=== PATIENT | male | born 1950 | race Caucasian/White ===

== ENCOUNTER → 2016-12-01 | Outpatient (CLI) | payer OTHER ==
[~2016-12-01] MED LIST: ATOR-22 PO; CEPH500C2 PO; CHOL100010 PO; GLC/500 PO; LISI-725 PO
== END | disposition home or self-care (01) ==
LOC: C.CPL 15:56
DX: S83.242D Other tear of medial meniscus, current injury, left knee, subsequent encounter (principal); X58.XXXA Exposure to other specified factors, initial encounter

== ENCOUNTER 2018-11-26 03:35 | Observation (INO) ==
[2018-11-26] MEDS ORDERED: fentaNYL citrate 100 MCG/2 ML VIAL IV STA (04:21)
[2018-11-26 04:42] LABS: Basophils # (auto) 0.07 K/uL (0-0.2); Basophils % (auto) 0.7 %; Eosinophils # (auto) 0.23 K/uL (0-0.5); Eosinophils % (auto) 2.3 %; Hemoglobin 16.1 g/dL (14.0-18.0); Immature Granulocytes # (auto) 0.02 K/uL (0.00-0.02); Immature Granulocytes % (auto) 0.2 %; Lymphocytes # (auto) 3.56 K/uL (1.2-3.4); Lymphocytes % (auto) 35.5 %; Mean Corpuscular Hgb Conc 34.3 g/dL (32-36); Mean Platelet Volume 10.2 fL (7.4-10.4); Monocytes # (auto) 0.77 K/uL (0.11-0.59); Monocytes % (auto) 7.7 %; Neutrophils # (auto) 5.39 K/uL (1.4-6.5); Neutrophils % (auto) 53.6 %; Platelet Count 304 K/uL (130-400); RDW Coefficient of Variation 12.7 % (11.5-14.5); RDW Standard Deviation 43.5 fL (36.4-46.3); White Blood Count 10.04 K/uL (4.8-10.8)
[2018-11-26 04:49] LABS: Alanine Aminotransferase 32 U/L (12-78); Albumin Level 3.9 gm/dl (3.4-5.0); Aspartate Aminotransferase 15 U/L (15-37); BUN Creatinine Ratio 30.6 (10-20); Blood Urea Nitrogen 28 mg/dl (7-18); Calcium 9.1 mg/dl (8.5-10.1); Carbon Dioxide 32 mmol/L (21-32); Chloride 105 mmol/L (98-107); Creatinine Clr Calc Pharmacy 81.8 ml/min; Est GFR (African American) 98.7; Est GFR (Non-African American) 85.2; Glucose 113 mg/dl (70-99); Magnesium 2.3 mg/dl (1.8-2.4); Potassium 4.3 mmol/L (3.5-5.1); Sodium 139 mmol/L (136-145)
[2018-11-26] MEDS ORDERED: SODIUM CHLORIDE 0.9% 1000ML 1,000 ML IV ONE (04:51)
[2018-11-26 04:54] LABS: Albumin Globulin Ratio 1.1 (0.9-2); Alkaline Phosphatase 67 U/L (45-117); Bilirubin,Total 0.4 mg/dl (0.2-1); Globulin 3.5 gm/dl (2.5-4.0); Total Protein 7.4 gm/dl (6.4-8.2); Troponin I < 0.015 ng/ml (0-0.045)
[2018-11-26] MEDS ORDERED: ONDANSETRON INJ 2 MG/ML 2 ML VIAL IV STA (05:15)
[2018-11-26] MEDS ORDERED: MoRPHine SULFATE 4 MG/ML 1 ML CARP\\VIAL IV STA (05:15)
[2018-11-26] MEDS ORDERED: HYDROmorphone INJ 0.5 MG/0.5 ML SYR IV STA (06:06)
--- NOTE | 2018-11-26 06:43 | Ultrasound Report ---
US gallbladder HISTORY: 68 years-old Male ruq pain acute right upper quadrant abdominal pain COMPARISON: CT abdomen pelvis 01/31/2010 TECHNIQUE: Multiple real-time sonographic images of the abdominal right upper quadrant were obtained assessing grayscale appearance and color flow FINDINGS: Study is limited by obscuring bowel gas. The pancreas is not diagnostically visualized. There are sev eral apparent hepatic cysts noted measuring up to approximately 1.2 cm. Gallbladder is mildly distend ed and sludge-filled. Trace pericholecystic fluid. Gallbladder wall is thickened measuring up to appr oximately 4 mm about the gallbladder fundus. Mild ringdown artifact noted about the gallbladder fundu s. Otherwise the gallbladder measures approximately 2 mm in thickness. No shadowing cholelithiasis. S onographic Garcia sign was reported as negative. There is a least mild intrahepatic biliary ductal dilation. The common bile duct measures up to 9 mm. Imaged right kidney is unremarkable without hydronephrosis. IMPRESSION: 1. Sludge-filled gallbladder is mildly distended. Additionally, there is trace pericholecystic fluid and mild fundal wall thickening without shadowing cholelithiasis. Correlate clinically to exclude acu te cholecystitis. A nuclear medicine hepatobiliary scan may also be considered. 2. Suggestion of fundal adenomyomatosis. 3. Mild intrahepatic and extrahepatic biliary ductal dilation. Correlate with laboratory analysis to exclude obstructive etiology. The above report was generated using voice recognition software. It may contain grammatical, syntax o r spelling errors. Electronically signed by: Ramon Sevilla M.D. 11/26/2018 6:42 AM
--- NOTE | 2018-11-26 07:13 | Emergency Department Note ---
Entered by Nay Spears acting as a scribe for History of Present Illness General Chief complaint: Flank Pain Stated complaint: PAIN IN LWR RIGHT SIDE Time Seen by Provider: 11/26/18 03:42 Source: patient History of Present Illness Onset (ago): hour(s) 3 Location: abdomen Radiation: non-radiation Severity: similar to prior episodes (indigestion, kidney stone) Pain Consistency: + other (worsening) Maximum Pain Intensity: 9 Quality: + other (bloated) Associated symptoms: + denies other symptoms (hematochezia, melena, urinary symptoms) and + other (loose bowel movements); no fever/chills, no nausea/vomiting (nausea) and no shortness of breath The patient is a 68 year old male who presents to the Emergency Room with complaints of an episode of right flank pain starting 3 hours ago. The patient states that last night after dinner he felt gassy and bloated. He reports that assumed it was just indigestion as his abdominal pain was all over his abdomen and his stomach was gurgly. He states that he went to bed and woke up once noticing that the pain was still there. He reports that he was able to fall back asleep, but woke up again 3 hours ago and was unable to go back to sleep. He states that this time the pain was right under his right ribs. He reports that it is worse than it was. He notes that he has had a kidney stone in the past and it feels similar to that. The patient notes that he has had loose bowel movements since being in [facility] in the beginning of october. He notes that he took a Z-Pack and some herbal remedy they offered with no relief. The patient denies radiation to his back, nausea, fever, chills, trouble breathing, hematochezia, melena, urinary symptoms, change in activity, recent illness, and change in medications. The patient notes that he is unsure if he has had an ap pendectomy or cholecystectomy. Home Medications Home Medications Medication Instructions Recorded Confirmed Type atorvastatin 20 mg PO DAILY 11/26/18 11/26/18 History cholecalciferol (vitamin D3) 1,000 unit PO DAILY 11/26/18 11/26/18 History [Vitamin D3] lisinopril 20 mg PO DAILY 11/26/18 11/26/18 History metformin 500 mg PO BID 11/26/18 11/26/18 History oxycodone 5 mg PO Q4H PRN #18 tab 11/27/18 Rx Allergies Allergy/AdvReac Type Severity Reaction Status Date / Time No Known Drug Allergies Allergy Unknown NKDA Verified 11/26/18 13:04 Past Med/Surg History Medical History Septic olecranon bursitis of right elbow (Acute 09/04/14) HTN (hypertension) Hx of basal cell carcinoma Kidney stones Surgical History H/O repair of right rotator cuff H/O wisdom tooth extraction S/P right knee arthroscopy Family History Other Cancer Gallbladder disease Heart disease Hypertension Social History Preferred Language: Spanish Communication Ability: Effective Facsimile Operator Required: No Beliefs That Will Affect Care: None marital status: Current Living Situation: Spouse current occupational status: retired Other Information That Helps Us Care for You: No Feels Safe at Home: Yes Safety Concerns: Feels Safe At This Time Smoking Status: Never smoker Do You Dip or Chew Tobacco: No Second Hand Exposure: No Tobacco Cessation Education Requested by Patient: No Hx Alcohol Use: Yes Alcohol type: beer, wine and hard liquor Hx Substance Use: No Review of Systems See HPI for pertinent positives & negatives. and A total of 10 systems reviewed and were otherwise negative Physical Exam Vital Signs Vital Signs - 24 hr 11/26/18 23:40 11/27/18 02:29 11/27/18 07:13 Temperature 37.3 C 36.8 C 36.7 C Temperature Source Oral Oral Oral Pulse Rate [Apical] Pulse Rate [Left Finger] Pulse Rate [Right Finger] 83 66 67 Respiratory Rate 14 14 16 Blood Pressure [Left Arm] 138/71 136/72 Blood Pressure [Right Arm] 143/75 H Blood Pressure Mean [Left Arm] 93 93 Blood Pressure Mean [Right Arm] 97 Blood Pressure Position [Left Arm] Lying Lying Blood Pressure Position [Right Arm] Lying Pulse Oximetry 93 95 92 Oxygen Delivery Method Room Air Room Air 11/27/18 12:40 11/27/18 14:02 Temperature 36.7 C 36.7 C Temperature Source Oral Pulse Rate [Apical] 92 H Pulse Rate [Left Finger] 86 Pulse Rate [Right Finger] 72 72 Respiratory Rate 18 18 Blood Pressure [Left Arm] 136/72 Blood Pressure [Right Arm] 141/72 H 141/72 H Blood Pressure Mean [Left Arm] Blood Pressure Mean [Right Arm] 95 Blood Pressure Position [Left Arm] Blood Pressure Position [Right Arm] Lying Pulse Oximetry 93 93 Oxygen Delivery Method GENERAL: alert, uncomfortable appearing, well nourished, no distress, non-toxic EYE EXAM: normal conjunctiva, PERRL and EOM's grossly intact OROPHARYNX: no exudate, no erythema, lips, buccal mucosa, and tongue normal and mucous membranes are moist NECK: supple, no nuchal rigidity, no adenopathy, non-tender LUNGS: Clear to auscultation. Normal chest wall mechanics HEART: no murmurs, S1 normal and S2 normal ABDOMEN: abdomen soft, mild right upper quadrant tenderness to palpation, normo- active bowel sounds, no masses, no rebound or guarding. BACK: Back is symmetrical on inspection and there is no deformity, no midline tenderness, no CVA tenderness. SKIN: no rashes and no bruising UPPER EXTREMITIES: upper extremities are grossly normal. FROM, nml pulses b/l. LOWER EXTREMITIES: No pitting edema. FROM, nml pulses b/l. NEURO EXAM: Normal sensorium, cranial nerves II-XII grossly intact, normal speech, no gross weakness of arms, no gross weakness of legs. Course 0349: The patient was evaluated in room B9. A complete history and physical exam was performed. 0607: I reevaluated the patient and updated him at this time on his test results. I discussed the treatment plan with him. He verbally agrees and understands. 0645: I discussed the patient's case with Dr. Ornelas- General Surgeon. He will pass along to day crew. Consultations Consultation #1: I discussed the patient's case with Dr. Ornelas- General Surgeon. He will evaluate him for further management. Time: 06:45 Administered Medications Discontinued Medications Bupivacaine HCl (Sensorcaine 0.25% Inj) Confirm Administered Dose 30 ml .ROUTE .Kashless-MED ONE Stop: 11/26/18 13:52 Last Admin: 11/26/18 17:04 Dose: 25 ml Documented by: [id number] Epinephrine HCl (Epinephrine) Confirm Administered Dose 1 mg .ROUTE .STK-MED ONE Stop: 11/26/18 13:52 Last Admin: 11/26/18 17:07 Dose: 1 mg Documented by: [id number] Erythromycin (Erythromycin) 1 appln OPL Q4H [place] Stop: 12/07/18 21:59 Last Admin: 11/27/18 02:33 Dose: 1 appln Documented by: [id number] Admin: 11/26/18 22:35 Dose: 1 appln Documented by: [id number] Fentanyl Citrate (Fentanyl Citrate) 50 mcg IV NOW STA Stop: 11/26/18 04:22 Last Admin: 11/26/18 04:30 Dose: 50 mcg Documented by: [id number] Fentanyl Citrate (Fentanyl Citrate) 50 mcg IV Q5M PRN PRN Reason: PACU Use Only-Pain Stop: 11/26/18 18:18 Last Admin: 11/26/18 17:44 Dose: 50 mcg Documented by: [id number] Glucagon (Glucagen) Confirm Administered Dose 1 mg .ROUTE .STK-MED ONE Stop: 11/26/18 15:41 Last Admin: 11/26/18 16:43 Dose: Not Given Documented by: [id number] Hydromorphone HCl (Dilaudid) 0.5 mg IV NOW STA Stop: 11/26/18 06:07 Last Admin: 11/26/18 06:13 Dose: 0.5 mg Documented by: [id number] Hydromorphone HCl (Dilaudid) 0.5 mg IV Q15M PRN PRN Reason: Pain Stop: 12/10/18 07:17 Last Admin: 11/26/18 07:24 Dose: 0.5 mg Documented by: [id number] Hydromorphone HCl (Dilaudid) 1 mg IV Q3H PRN PRN Reason: SEVERE Pain (Scale 7,8,9,10) Stop: 12/10/18 09:42 Last Admin: 11/26/18 10:27 Dose: 1 mg Documented by: [id number] Hydromorphone HCl (Dilaudid) 0.5 mg IV Q3H PRN PRN Reason: Breakthrough Pain Stop: 12/10/18 18:41 Last Admin: 11/27/18 07:26 Dose: 0.5 mg Documented by: [id number] Admin: 11/26/18 22:18 Dose: 0.5 mg Documented by: [id number] Sodium Chloride (Nss 1000ml) 1,000 mls @ 999 mls/hr IV .Q1H1M ONE Stop: 11/26/18 05:51 Last Infusion: 11/26/18 05:38 Dose: 0 mls/hr Documented by: [id number] Admin: 11/26/18 04:56 Dose: 999 mls/hr Documented by: [id number] Sodium Chloride (Nss 1000ml) 1,000 mls @ 125 mls/hr IV .Q8H [place] Stop: 12/26/18 07:29 Last Infusion: 11/26/18 14:45 Dose: 0 mls/hr Documented by: [id number] Admin: 11/26/18 07:24 Dose: 125 mls/hr Documented by: [id number] Cefazolin Sodium (Ancef 2000mg) 2,000 mg in 15 mls @ 3.75 mls/min IV PREOP [place] Stop: 11/26/18 18:00 Last Admin: 11/26/18 13:55 Dose: 3.75 mls/min Documented by: [id number] Sodium Chloride (Nss 1000ml) 1,000 mls @ 75 mls/hr IV .[id number] [place] Stop: 12/26/18 09:42 Last Admin: 11/27/18 08:28 Dose: 125 mls/hr Documented by: [id number] Infusion: 11/27/18 08:28 Dose: 125 mls/hr Documented by: [id number] Infusion: 11/27/18 01:30 Dose: 125 mls/hr Documented by: [id number] Infusion: 11/27/18 00:27 Dose: 0 mls/hr Documented by: [id number] Admin: 11/26/18 23:46 Dose: Not Given Documented by: [id number] Admin: 11/26/18 23:33 Dose: 125 mls/hr Documented by: [id number] Infusion: 11/26/18 19:16 Dose: 125 mls/hr Documented by: [id number] Admin: 11/26/18 11:16 Dose: 125 mls/hr Documented by: [id number] Insulin Aspart (Novolog Flexpen) 0 units SC ACHS [place] Stop: 12/26/18 20:59 Last Admin: 11/27/18 12:28 Dose: Not Given Documented by: [id number] Cosigned by: [id number] Admin: 11/27/18 09:01 Dose: Not Given Documented by: [id number] Cosigned by: [id number] Admin: 11/26/18 21:17 Dose: Not Given Documented by: [id number] Cosigned by: [id number] Iothalamate Meglumine (Conray 60%) Confirm Administered Dose 50 ml .ROUTE .STK- MED ONE Stop: 11/26/18 13:50 Last Admin: 11/26/18 16:53 Dose: 16 ml Documented by: [id number] Lidocaine HCl (Xylocaine Jely 2%) 0 ml EXT NOW ONE Stop: 11/26/18 19:13 Last Admin: 11/26/18 19:48 Dose: 5 ml Documented by: [id number] Meperidine HCl (Demerol) Confirm Administered Dose 25 mg .ROUTE .STK-MED ONE Stop: 11/26/18 17:38 Last Admin: 11/26/18 17:39 Dose: 12.5 mg Documented by: [id number] Morphine Sulfate (Morphine Sulfate) 4 mg IV NOW STA Stop: 11/26/18 05:16 Last Admin: 11/26/18 05:20 Dose: 4 mg Documented by: [id number] Ondansetron HCl (Zofran) 4 mg IV NOW STA Stop: 11/26/18 05:16 Last Admin: 11/26/18 05:20 Dose: 4 mg Documented by: [id number] Oxycodone HCl (Roxicodone Immediate Rel) 10 mg PO Q4H PRN PRN Reason: pain severe Stop: 12/10/18 18:41 Last Admin: 11/27/18 02:32 Dose: 10 mg Documented by: [id number] Medical Decision Making Differential Diagnosis Differential diagnosis: Etiologies such as biliary colic, cholecystitis, hepatitis, pancreatitis, cardiac disease, pancreatitis, gastritis, peptic ulcer disease, appendicitis, cystitis, diverticulitis, mesenteric ischemia, inflammatory bowel disease, ileus, bowel obstruction, testicular torsion, aortic pathology, shingles, as well as others were considered. Medical Records Attestation: I reviewed the patient's medical records. Home Medications Current Medication List: was personally reviewed by me Laboratory Data Attestation: I reviewed the patient's lab results. Result diagrams: 11/27/18 07:33 11/27/18 07:33 Lab Results 11/26/18 11/26/18 11/26/18 Range/Units 03:46 03:46 03:46 WBC 10.04 (4.8-10.8) K/uL RBC 5.00 (4.7-6.1) M/uL Hgb 16.1 (14.0-18.0) g/dL Hct 47.0 (42-52) % MCV 94.0 (80-100) fL MCH 32.2 (25-34) pg MCHC 34.3 (32-36) g/dL RDW Std Deviation 43.5 (36.4-46.3) fL RDW Coeff of Chet 12.7 (11.5-14.5) % Plt Count 304 (130-400) K/uL MPV 10.2 (7.4-10.4) fL Immature Gran % (Auto) 0.2 % Neut % (Auto) 53.6 % Lymph % (Auto) 35.5 % [place] % (Auto) 7.7 % Eos % (Auto) 2.3 % Baso % (Auto) 0.7 % Immature Gran # (Auto) 0.02 (0.00-0.02) K/uL Neut # (Auto) 5.39 (1.4-6.5) K/uL Lymph # (Auto) 3.56 H (1.2-3.4) K/uL [place] # (Auto) 0.77 H (0.11-0.59) K/uL Eos # (Auto) 0.23 (0-0.5) K/uL Baso # (Auto) 0.07 (0-0.2) K/uL Sodium 139 (136-145) mmol/L Potassium 4.3 (3.5-5.1) mmol/L Chloride 105 (98-107) mmol/L Carbon Dioxide 32 (21-32) mmol/L Anion Gap 2.0 L (3-11) BUN 28 H (7-18) mg/dl Creatinine 0.92 (0.6-1.4) mg/dl Est Cr Clr Drug Dosing 81.8 ml/min Est GFR ( Amer) 98.7 Est GFR (Non-Af Amer) 85.2 BUN/Creatinine Ratio 30.6 H (10-20) Glucose 113 H (70-99) mg/dl POC Glucose (70-99) Calcium 9.1 (8.5-10.1) mg/dl Magnesium 2.3 (1.8-2.4) mg/dl Total Bilirubin 0.4 (0.2-1) mg/dl Direct Bilirubin (0-0.2) mg/dl AST 15 (15-37) U/L ALT 32 (12-78) U/L Alkaline Phosphatase 67 (45-117) U/L Troponin I < 0.015 (0-0.045) ng/ml Total Protein 7.4 (6.4-8.2) gm/dl Albumin 3.9 (3.4-5.0) gm/dl Globulin 3.5 (2.5-4.0) gm/dl Albumin/Globulin Ratio 1.1 (0.9-2) Lipase 211 (73-393) U/L Urine Color Urine Appearance (Clear) Urine pH (4.5-7.5) Ur Specific [place] (1.000-1.030) Urine Protein (Negative) Urine Glucose (UA) (Negative) Urine Ketones (Negative) Urine Blood (Negative) Urine Nitrite (Negative) Urine Bilirubin (Negative) Urine Urobilinogen (Negative) Ur Leukocyte Esterase (Negative) Hepatitis C Ab Screen Neg (Neg) 11/26/18 11/26/18 11/27/18 Range/Units 12:40 20:55 07:33 WBC 12.42 H (4.8-10.8) K/uL RBC 4.14 L (4.7-6.1) M/uL Hgb 13.1 L D (14.0-18.0) g/dL Hct 38.5 L (42-52) % MCV 93.0 (80-100) fL MCH 31.6 (25-34) pg MCHC 34.0 (32-36) g/dL RDW Std Deviation 44.5 (36.4-46.3) fL RDW Coeff of Chet 12.9 (11.5-14.5) % Plt Count 233 (130-400) K/uL MPV 9.5 (7.4-10.4) fL Immature Gran % (Auto) 0.3 % Neut % (Auto) 73.9 % Lymph % (Auto) 17.8 % [place] % (Auto) 7.6 % Eos % (Auto) 0.2 % Baso % (Auto) 0.2 % Immature Gran # (Auto) 0.04 H (0.00-0.02) K/uL Neut # (Auto) 9.19 H (1.4-6.5) K/uL Lymph # (Auto) 2.21 (1.2-3.4) K/uL [place] # (Auto) 0.94 H (0.11-0.59) K/uL Eos # (Auto) 0.02 (0-0.5) K/uL Baso # (Auto) 0.02 (0-0.2) K/uL Sodium (136-145) mmol/L Potassium (3.5-5.1) mmol/L Chloride (98-107) mmol/L Carbon Dioxide (21-32) mmol/L Anion Gap (3-11) BUN (7-18) mg/dl Creatinine (0.6-1.4) mg/dl Est Cr Clr Drug Dosing ml/min Est GFR ( Amer) Est GFR (Non-Af Amer) BUN/Creatinine Ratio (10-20) Glucose (70-99) mg/dl POC Glucose 148 H (70-99) Calcium (8.5-10.1) mg/dl Magnesium (1.8-2.4) mg/dl Total Bilirubin (0.2-1) mg/dl Direct Bilirubin (0-0.2) mg/dl AST (15-37) U/L ALT (12-78) U/L Alkaline Phosphatase (45-117) U/L Troponin I (0-0.045) ng/ml Total Protein (6.4-8.2) gm/dl Albumin (3.4-5.0) gm/dl Globulin (2.5-4.0) gm/dl Albumin/Globulin Ratio (0.9-2) Lipase (73-393) U/L Urine Color Yellow Urine Appearance Clear (Clear) Urine pH 5.0 (4.5-7.5) Ur Specific [place] 1.021 (1.000-1.030) Urine Protein Negative (Negative) Urine Glucose (UA) Negative (Negative) Urine Ketones Negative (Negative) Urine Blood Negative (Negative) Urine Nitrite Negative (Negative) Urine Bilirubin Negative (Negative) Urine Urobilinogen Negative (Negative) Ur Leukocyte Esterase Negative (Negative) Hepatitis C Ab Screen (Neg) 11/27/18 11/27/18 11/27/18 Range/Units 07:33 07:58 12:13 WBC (4.8-10.8) K/uL RBC (4.7-6.1) M/uL Hgb (14.0-18.0) g/dL Hct (42-52) % MCV (80-100) fL MCH (25-34) pg MCHC (32-36) g/dL RDW Std Deviation (36.4-46.3) fL RDW Coeff of Chet (11.5-14.5) % Plt Count (130-400) K/uL MPV (7.4-10.4) fL Immature Gran % (Auto) % Neut % (Auto) % Lymph % (Auto) % [place] % (Auto) % Eos % (Auto) % Baso % (Auto) % Immature Gran # (Auto) (0.00-0.02) K/uL Neut # (Auto) (1.4-6.5) K/uL Lymph # (Auto) (1.2-3.4) K/uL [place] # (Auto) (0.11-0.59) K/uL Eos # (Auto) (0-0.5) K/uL Baso # (Auto) (0-0.2) K/uL Sodium 140 (136-145) mmol/L Potassium 3.8 (3.5-5.1) mmol/L Chloride 107 (98-107) mmol/L Carbon Dioxide 28 (21-32) mmol/L Anion Gap 5.0 (3-11) BUN 12 D (7-18) mg/dl Creatinine 0.67 (0.6-1.4) mg/dl Est Cr Clr Drug Dosing 112.4 ml/min Est GFR ( Amer) 114.4 Est GFR (Non-Af Amer) 98.7 BUN/Creatinine Ratio 18.1 (10-20) Glucose 104 H (70-99) mg/dl POC Glucose 101 H 98 (70-99) Calcium 8.3 L (8.5-10.1) mg/dl Magnesium (1.8-2.4) mg/dl Total Bilirubin 1.0 D (0.2-1) mg/dl Direct Bilirubin 0.2 (0-0.2) mg/dl AST 61 H (15-37) U/L ALT 89 H (12-78) U/L Alkaline Phosphatase 54 (45-117) U/L Troponin I (0-0.045) ng/ml Total Protein 5.9 L D (6.4-8.2) gm/dl Albumin 3.1 L (3.4-5.0) gm/dl Globulin (2.5-4.0) gm/dl Albumin/Globulin Ratio (0.9-2) Lipase (73-393) U/L Urine Color Urine Appearance (Clear) Urine pH (4.5-7.5) Ur Specific [place] (1.000-1.030) Urine Protein (Negative) Urine Glucose (UA) (Negative) Urine Ketones (Negative) Urine Blood (Negative) Urine Nitrite (Negative) Urine Bilirubin (Negative) Urine Urobilinogen (Negative) Ur Leukocyte Esterase (Negative) Hepatitis C Ab Screen (Neg) Imaging Data Radiologist's Impression: Radiology results as stated below per my review and the radiologist's interpretation: US RUQ: Gallbladder filled with sludge/cholesterol crystals; gallbladder wall thickening superimposed along with pericholecystic fluid. Negative sonographic Garcia's sign reported. Consider correlation with nuclear medicine HIDA scan if clinically indicated. Intra-and extrahepatic biliary ductal dilatation identified with the CBD measuring up to 9.4 mm. Hepatic cysts noted measuring up to 12 mm. Portal triads are preserved. Pancreas obscured by overlying bowel gas. Visualized right kidney unremarkable. Comparison CT abdomen and pelvis dated 01/31/2010. Radiologist: Antonino Webb MD Study ready at 05:20 and initial results transmitted at 05:34. ECG Data Attestation: I personally reviewed and interpreted this ECG as follows: Indication: abdominal pain Rate (beats per minute): 71 Rhythm: sinus rhythm Findings: + other (normal axis; normal intervals; flat T waves in aVF, V5, V6) and + T-wave inversion (lead 3); no PAC, no PVC and no ectopy Blood Pressure Blood Pressure Findings: Elevated blood pressure Blood Pressure Disposition: elevated BP felt to be situational MDM Narrative Pt here with focal RUQ tenderness and abn US concerning for evolving cholecystitis. Labs reassuring, no leukocytosis or elevated LFT's/lipase. US notes ductal dilatation intra and extra hepatic but no evidence of choledocholithiasis and LFT's not suggestive of obstruction. No evidence of pancreatitis. Given need for multiple doses of narcotics for pain, I feel this is likely the early evolution of his cholecystitis. No fever. No vomiting. VS stable throughout. I do not suspect ascending cholangitis, no evidence of bacteremia/sepsis. I do not suspect additional gi bleed, colitis, mesenteric ischemia, perf, sbo. Pt here aware of all results and in agreement with plan for discussion and consultation with general surgery. Impression & Plan Right upper quadrant abdominal pain, Cholecystitis Discharge Plan Visit Data *Final* Discharge Date/Time: 11/26/18 09:22 Chief Complaint: Flank Pain Stated Complaint: PAIN IN LWR RIGHT SIDE ED Provider: Amy Mulligan Discharge Problem: Right upper quadrant abdominal pain, Cholecystitis Patient Disposition: Admitted As Inpatient Condition: Good Discharge Instructions Interventions: ED Discharge Assessment Last Done: 11/26/18 09:22 The scribe's documentation has been prepared under my direction and personally reviewed by me in its entirety. I confirm that the note above accurately reflects all work, treatment, procedures, and medical decision making performed by me.
[2018-11-26] MEDS ORDERED: HYDROmorphone INJ 0.5 MG/0.5 ML SYR IV PRN ×3 (07:18→09:43)
[2018-11-26] MEDS ORDERED: SODIUM CHLORIDE 0.9% 1000ML 1,000 ML IV SCH (07:30)
--- NOTE | 2018-11-26 08:50 | History & Physical Report ---
Date of Service November 26, 2018 Assessment & Plan (1) Right upper quadrant abdominal pain: 68 year-old male who presented to emergency department early this morning with complaint of abdominal bloating, distention, and pain that started last evening. Had Easter meal yesterday afternoon and then developed bloating and distention with right upper quadrant pain in the evening. Pain off and on. Associated nausea this morning, no vomiting. Ultrasound showing distended gallbladder with sludge, no stones, wall thickening at 4 mm at the fundus with possible adenomyomatosis and dilated CBD at 9 mm. CBC, CMP, lipase all within normal limits. Examination: mildly distended abdomen, soft, mildly tender in the RUQ however negative Garcia's, no guarding or rebound. Plan: Given imaging findings and presenting symptoms, believe patient is having symptomatic biliary colic due to gallbladder sludge. Possible adenomyomatosis of the gallbladder fundus. Believe cholecystectomy is indicated. Discussed laparoscopic approach with patient and the possibility of conversion to open procedure although rare. Discussed restrictions and recovery time. Plan to admit patient to med/surg floor in the interim until operating room available Continue NPO, may have mouth swabs, IV NSS at 125 mls/hr, IV Zofran prn nausea, IV Dilaudid prn pain, SCDs for DVT prophylaxis, ambulate in hallways. Discussed patient with Dr. Ricketts who agrees with above and is to evaluate patient later this morning (2) Biliary sludge: (3) Biliary colic symptom: History of Present Illness Chief Complaint: abdominal bloating, RUQ abdominal pain Primary Care Provider: Jose Carlos Carias MD Felipe is a pleasant 68 year-old male who presented to emergency department thi s morning with complaint of abdominal bloating/distention and then pain that began last evening. Ate Easter dinner yesterday afternoon and felt fine. Was able to drive home and watch TV last night without any discomfort. Around 11 pm had bloating and generalized discomfort that resolved and then a few hours later pain woke him up and was unable to get back to sleep. Associated nausea. Bowel movements have been loose since traveling back from [place] in October but regularly scheduled every day. No bloody or black/tarry stools. Has had kidney stones in the past in which he originally thought this was what his pain was but then did not have any trouble urinating, dysuria, or blood in urine. Denies of any fever, chills, sweats, chest pain, shortness of breath, difficulty breathing, or vomiting. No history of gallbladder troubles. ER work-up included labs which showed no leukocytosis. CMP including t. bili and lfts with lipase all wnl. Abdominal ultrasound showing sludge with trace pericholecystic fluid and mild thickening of the gallbladder fundus. CBD dilated at 9 mm. Question of possible adenomyomatosis of the gallbladder fundus. He had Dilaudid around 7:15 am and during examination he was not having any pain or discomfort. Pain on presentation was 8/10. Was very uncomfortable last night. Allergies Allergy/AdvReac Type Severity Reaction Status Date / Time No Known Drug Allergies Allergy Unknown NKDA Verified 11/26/18 13:04 Home Medications Home Medications Medication Instructions Recorded Confirmed Type atorvastatin 20 mg PO DAILY 11/26/18 11/26/18 History cholecalciferol (vitamin D3) 1,000 unit PO DAILY 11/26/18 11/26/18 History [Vitamin D3] lisinopril 20 mg PO DAILY 11/26/18 11/26/18 History metformin 500 mg PO BID 11/26/18 11/26/18 History Past Med/Surg History Medical History Septic olecranon bursitis of right elbow (Acute 09/04/14) HTN (hypertension) Hx of basal cell carcinoma Kidney stones Surgical History H/O repair of right rotator cuff H/O wisdom tooth extraction S/P right knee arthroscopy Family History Other Cancer Gallbladder disease Heart disease Hypertension Social History Preferred Language: Vietnamese Communication Ability: Effective Wind Technician Required: No Beliefs That Will Affect Care: None marital status: Current Living Situation: Spouse current occupational status: retired Other Information That Helps Us Care for You: No Feels Safe at Home: Yes Safety Concerns: Feels Safe At This Time Smoking Status: Never smoker Do You Dip or Chew Tobacco: No Second Hand Exposure: No Tobacco Cessation Education Requested by Patient: No Hx Alcohol Use: Yes Alcohol type: beer, wine and hard liquor Hx Substance Use: No Review of Systems Review of Systems: All systems reviewed & are unremarkable except as noted in HPI & below Physical Exam Constitutional: WD/WN, vitals as above no acute distress and not ill appearing Respiratory: normal respiratory effort, lungs clear to auscultation Cardiovascular: RRR, no murmur, no edema Gastrointestinal (Abdomen): Inspection/Auscultation: abdomen normal to inspection, + abdomen distended (mild) and normal bowel sounds Percussion/Palpation: + abdomen tender (mild in RUQ) and abdomen soft; no guarding and abdomen not rigid negative garcia's sign Skin: no rashes, warm and dry Psychiatric: A+Ox3, euthymic affect Results & Data Vital Signs (Past 12 Hours) Vital Signs Temp Pulse Pulse Resp BP BP Pulse Ox 11/26/18 08:30 72 18 148/81 H 95 11/26/18 07:00 71 17 111/61 96 11/26/18 05:30 70 15 143/85 H 11/26/18 05:16 74 18 11/26/18 05:12 70 16 155/97 H 11/26/18 03:38 36.6 C 80 18 177/107 H 96 Laboratory Results 11/26/18 11/26/18 Range/Units 03:46 03:46 WBC 10.04 (4.8-10.8) K/uL RBC 5.00 (4.7-6.1) M/uL Hgb 16.1 (14.0-18.0) g/dL Hct 47.0 (42-52) % MCV 94.0 (80-100) fL MCH 32.2 (25-34) pg MCHC 34.3 (32-36) g/dL RDW Std Deviation 43.5 (36.4-46.3) fL RDW Coeff of Chet 12.7 (11.5-14.5) % Plt Count 304 (130-400) K/uL MPV 10.2 (7.4-10.4) fL Immature Gran % (Auto) 0.2 % Neut % (Auto) 53.6 % Lymph % (Auto) 35.5 % [place] % (Auto) 7.7 % Eos % (Auto) 2.3 % Baso % (Auto) 0.7 % Immature Gran # (Auto) 0.02 (0.00-0.02) K/uL Neut # (Auto) 5.39 (1.4-6.5) K/uL Lymph # (Auto) 3.56 H (1.2-3.4) K/uL [place] # (Auto) 0.77 H (0.11-0.59) K/uL Eos # (Auto) 0.23 (0-0.5) K/uL Baso # (Auto) 0.07 (0-0.2) K/uL Sodium 139 (136-145) mmol/L Potassium 4.3 (3.5-5.1) mmol/L Chloride 105 (98-107) mmol/L Carbon Dioxide 32 (21-32) mmol/L Anion Gap 2.0 L (3-11) BUN 28 H (7-18) mg/dl Creatinine 0.92 (0.6-1.4) mg/dl Est Cr Clr Drug Dosing 81.8 ml/min Est GFR ( Amer) 98.7 Est GFR (Non-Af Amer) 85.2 BUN/Creatinine Ratio 30.6 H (10-20) Glucose 113 H (70-99) mg/dl Calcium 9.1 (8.5-10.1) mg/dl Magnesium 2.3 (1.8-2.4) mg/dl Total Bilirubin 0.4 (0.2-1) mg/dl AST 15 (15-37) U/L ALT 32 (12-78) U/L Alkaline Phosphatase 67 (45-117) U/L Troponin I < 0.015 (0-0.045) ng/ml Total Protein 7.4 (6.4-8.2) gm/dl Albumin 3.9 (3.4-5.0) gm/dl Globulin 3.5 (2.5-4.0) gm/dl Albumin/Globulin Ratio 1.1 (0.9-2) Lipase 211 (73-393) U/L Diagnostic Findings US gallbladder HISTORY: 68 years-old Male ruq pain acute right upper quadrant abdominal pain COMPARISON: CT abdomen pelvis 01/31/2010 TECHNIQUE: Multiple real-time sonographic images of the abdominal right upper quadrant were obtained assessing grayscale appearance and color flow FINDINGS: Study is limited by obscuring bowel gas. The pancreas is not diagnostically visualized. There are several apparent hepatic cysts noted measuring up to approximately 1.2 cm. Gallbladder is mildly distended and sludge-filled. Trace p ericholecystic fluid. Gallbladder wall is thickened measuring up to approximately 4 mm about the gallbladder fundus. Mild ringdown artifact noted about the gallbladder fundus. Otherwise the gallbladder measures approximately 2 mm in thickness. No shadowing cholelithiasis. Sonographic Garcia sign was reported as negative. There is a least mild intrahepatic biliary ductal dilation. The common bile duct measures up to 9 mm. Imaged right kidney is unremarkable without hydronephrosis. IMPRESSION: 1. Sludge-filled gallbladder is mildly distended. Additionally, there is trace pericholecystic fluid and mild fundal wall thickening without shadowing cholelithiasis. Correlate clinically to exclude acute cholecystitis. A nuclear medicine hepatobiliary scan may also be considered. 2. Suggestion of fundal adenomyomatosis. 3. Mild intrahepatic and extrahepatic biliary ductal dilation. Correlate with laboratory analysis to exclude obstructive etiology. Code Status & VTE Plan VTE Prophylaxis Plan VTE Prophylaxis will be ordered: Yes Supervising Physician Co-Signing Physician Notes I have seen and evaluated the patient and reviewed the medical record. I agree with the documentation as provided in this note by Anahy Henriquez PA-C. 68 yo male who presents with symptomatic gallbladder sludge, with dilated CBD concerning for choledocholithiasis. Plan for laparoscopic, possible open, cholecystectomy with IOC. Discussed the possibility of choledocholithiasis and if this were found that GI would be consulted and pt would potentially require an ERCP. - OR today for lap, possible open, cholecystectomy with IOC. Consent obtained (see below). 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 All questions were answered to apparent satisfaction and the patient freely signed consent.
[2018-11-26] MEDS ORDERED: ONDANSETRON INJ 2 MG/ML 2 ML VIAL IV PRN ×2 (09:43→13:18)
[2018-11-26] MEDS ORDERED: HYDROmorphone INJ 1 MG/ML SYRINGE IV PRN (09:43)
[2018-11-26] MEDS ORDERED: CEFAZOLIN 2000MG 2,000 MG/15 ML SYR IV SCH (09:43)
[2018-11-26] MEDS: SODIUM CHLORIDE 0.9% 1000ML 1,000 ML IV SCH ×3 (11:16→23:46)
[2018-11-26] MEDS ORDERED: DEXAMETHASONE SOD INJ 4 MG/ML VIAL ONE (11:45)
[2018-11-26] MEDS ORDERED: PROPOFOL IV EMULSION 10 MG/ML 20 ML VIAL IV ONE (11:45)
[2018-11-26] MEDS ORDERED: LIDOCAINE HCL 2% 2 ML VIAL/AMP(20MG/ML) INFIL ONE (11:45)
[2018-11-26] MEDS ORDERED: MIDAZOLAM HCL 1 MG/ML 2ML VIAL ONE (11:45)
[2018-11-26] MEDS ORDERED: fentaNYL citrate 100 MCG/2 ML VIAL ONE ×3 (11:45→14:35)
[2018-11-26] MEDS ORDERED: ONDANSETRON INJ 2 MG/ML 2 ML VIAL ONE (11:45)
[2018-11-26 13:00] LABS: Appearance Urine Clear (Clear); Bilirubin Urine Negative (Negative); Blood Urine Negative (Negative); Color Urine Yellow; Glucose Urine UA Negative (Negative); Ketones Urine Negative (Negative); Leukocyte Esterase Urine Negative (Negative); Nitrite Urine Negative (Negative); Protein Urine Negative (Negative); Specific Gravity Urine 1.021 (1.000-1.030); Urobilinogen Urine Negative (Negative)
--- NOTE | 2018-11-26 13:17 | Anesthesiology Consultation ---
Date of Service November 26, 2018 Assessment & Plan Chart Review Chart Review: Acceptable Risk for Surgery Consults Requested none NPO Date Last Intake of Fluids: 11/25/18 Time Last Intake of Fluids: 22:00 Date Last Intake of Solids: 11/25/18 Time Last Intake of Solids: 19:00 History Surgery Operation Date: 11/26/18 11:00 Proposed Procedures p Laparoscopic Cholecystectomy with Cholangiogram - Yojana Ricketts MD Height/Weight Height: 6 ft Weight: 75.3 kg Allergies Allergy/AdvReac Type Severity Reaction Status Date / Time No Known Drug Allergies Allergy Unknown NKDA Verified 11/26/18 13:04 Medications Home Medications Medication Instructions Recorded Confirmed Last Taken atorvastatin 20 mg PO DAILY 11/26/18 11/26/18 11/25/18 cholecalciferol (vitamin D3) 1,000 unit PO DAILY 11/26/18 11/26/18 11/25/18 [Vitamin D3] lisinopril 20 mg PO DAILY 11/26/18 11/26/18 11/25/18 metformin 500 mg PO BID 11/26/18 11/26/18 11/25/18 Active Medications Generic Name Dose Route Start Last Admin Trade Name Freq PRN Reason Stop Dose Admin Hydromorphone HCl 1 mg 11/26/18 09:43 11/26/18 10:27 Dilaudid IV 12/10/18 09:42 1 mg Q3H PRN Administration SEVERE Pain (Scale 7,8,9,10) Sodium Chloride 1,000 mls @ 125 mls/hr 11/26/18 09:43 11/26/18 11:16 Nss 1000ml IV 12/26/18 09:42 125 mls/hr .Q8H [place] Administration Past Medical History Medical History Septic olecranon bursitis of right elbow (Acute 09/04/14) HTN (hypertension) Hx of basal cell carcinoma Kidney stones Past Family History Family History Other Cancer Gallbladder disease Heart disease Hypertension Past Surgical History Surgical History H/O repair of right rotator cuff H/O wisdom tooth extraction S/P right knee arthroscopy Social History Smoking Status: Never smoker Do You Dip or Chew Tobacco: No Hx Alcohol Use: Yes Alcohol type: beer, wine and hard liquor alcohol intake frequency: 3 or more drinks per day Hx Substance Use: No Physical Exam Vital Signs Last Vital Signs Temp 36.4 C L 11/26/18 12:55 Pulse 68 11/26/18 12:55 Resp 20 11/26/18 12:55 BP 164/97 H 11/26/18 12:55 Pulse Ox 97 11/26/18 12:55 Testing Laboratory Results 11/26/18 03:46 11/26/18 03:46 Urine Color Yellow 11/26/18 12:40 Urine Appearance Clear (Clear) 11/26/18 12:40 Urine pH 5.0 (4.5-7.5) 11/26/18 12:40 Ur Specific [place] 1.021 (1.000-1.030) 11/26/18 12:40 Urine Protein Negative (Negative) 11/26/18 12:40 Urine Glucose (UA) Negative (Negative) 11/26/18 12:40 Urine Ketones Negative (Negative) 11/26/18 12:40 Urine Nitrite Negative (Negative) 11/26/18 12:40 Ur Leukocyte Esterase Negative (Negative) 11/26/18 12:40
[2018-11-26] MEDS ORDERED: ATROPINE SULFATE 0.1 MG/ML 10ML SYR IV PRN (13:18)
[2018-11-26] MEDS ORDERED: HYDROmorphone INJ 2 MG/ML SYR/VIAL IV PRN (13:18)
[2018-11-26] MEDS ORDERED: ePHEDrine sulfate 50 MG/ML AMP IV PRN (13:18)
[2018-11-26] MEDS ORDERED: DEXAMETHASONE SOD INJ 4 MG/ML VIAL IV PRN (13:18)
[2018-11-26] MEDS ORDERED: fentaNYL citrate 100 MCG/2 ML VIAL IV PRN (13:18)
--- NOTE | 2018-11-26 13:40 | History & Physical Bridge Note ---
Date of Service November 26, 2018 History & Physical Bridge Note I have examined the patient, reviewed the History & Physical and in the interval since the performance of the History & Physical I have noted the following changes of clinical significance: no changes noted
[2018-11-26] MEDS ORDERED: ACETAMINOPHEN 1000 MG/100 ML IV IV ONE (13:42)
[2018-11-26] MEDS ORDERED: CONRAY 60% 50 ML VIAL ONE (13:49)
[2018-11-26] MEDS ORDERED: EPINEPHrine INJ 1 MG/ML AMP ONE (13:51)
[2018-11-26] MEDS ORDERED: BUPIVACAINE 0.25% 30 ML VIAL ONE (13:51)
[2018-11-26] MEDS ORDERED: ROCURONIUM BROMIDE 10 MG/ML 5 ML VIAL ONE (14:33)
[2018-11-26] MEDS ORDERED: GLUCAGON FOR INJ 1 MG VIAL ONE (15:40)
--- NOTE | 2018-11-26 16:29 | Fluoroscopy Report ---
[place] cholangiogram OR CLINICAL HISTORY: 68 years-old Male presenting with cholelithiasis and biliary ductal dilatation. TECHNIQUE: Fluoroscopy was provided for an intraoperative cholangiogram. 6 fluoroscopic image(s) levi rded. COMPARISON: Ultrasound from 11/26/2018. FINDINGS: Procedure: An intraoperative cholangiogram was performed after cholecystectomy. Cholecystectomy clips noted. The biliary ductal system was accessed and opacified with contrast. Filling defects suggested at the proximal common duct. The appearance of a narrow caliber of the mid common duct may be due to suboptimal opacification, mass effect from adjacent structures, or intraluminal filling defects. Peritoneal spillage: Peritoneal spillage of contrast consistent with a leak, likely at the cystic kaye t injection site. Extrahepatic bile ducts: Common bile duct dilated in the distal portion and relatively more narrow in caliber in the midportion. Contrast extends into the small bowel. Intrahepatic bile ducts: There is no intrahepatic bile duct dilatation. Fluoroscopy dosage (mGy): 9.18. Fluoroscopy time: 54 seconds. Number or time of high level fluoroscopy (HLF), digital spot, or digital subtraction images: 0. IMPRESSION: The patient is status post cholecystectomy. Suspected filling defects within the proximal common duct . The appearance of the mid common duct is indeterminate and may be due to suboptimal opacification, mass effect from adjacent structures, or intraluminal filling defects. Electronically signed by: Junior Meyers M.D. 11/26/2018 4:28 PM
[2018-11-26] MEDS ORDERED: NEOSTIGMINE METHYLSULFATE 5 MG/5 ML SYR ONE (16:39)
[2018-11-26] MEDS ORDERED: GLYCOPYRROLATE 0.2 MG/ML VIAL ONE (16:39)
--- NOTE | 2018-11-26 17:19 | Operative Report ---
Post Operative Report Pre & Post Diagnosis Operation Date: 11/26/18 11:00 Pre-Op Diagnosis: Biliary sludge Biliary colic symptom Post-Op Diagnosis: Acute cholecystitis Procedure Operation Date: 11/26/18 11:00 Actual Procedures p Laparoscopic Cholecystectomy with Intra-operative Cholangiogram - Yojana Ricketts MD Surgeon Yojana Ricketts MD Globe Mounter none Estimated Blood Loss 10 Findings See Below Acute cholecystitis and duodenum was abnormally adhered to the CBD and abutting the cystic duct/infundibulum; there was a liver lesion just lateral to the gallbladder fossa. Specimens Gallbladder to Pathology Anesthesia Type General Complications none Disposition Disposition: Recovery Room Description of Procedure History and Indications: Pt is an 68 year old male who presented with symptomatic biliary sludge and a dilated CBD. A discussion was had with the patient about risks, benefits, and alternatives to surgery. Risks included, but are not limited to, injury to the bile ducts, bile leak, abscess, hernia, retained stone, needing to convert to an open procedure, bleeding, infection, IL, stroke, , and need for prolonged intubation. After discussion, and all questions were answered to apparent s atisfaction, the patient freely signed consent to proceed with laparoscopic, possible open, cholecystectomy. Description of Procedure: The patient was taken to the operating room and placed in the supine position. Jessica-operative antibiotics were administered and SCDs were on and working. General anesthesia was induced. A timeout was held confirming the correct patient, procedure, and necessary equipment. An OG tube was placed. The abdomen was prepped and draped in the usual sterile fashion. An incision was made above the umbilicus. The fascia was elevated and incised. The peritoneum was elevated and incised. Entry into the peritoneum was confirmed visually and no bowel was noted in the vicinity of the incision. The Yun cannula was inserted. The abdomen was insufflated with carbon dioxide. The patient tolerated insufflation well. The laparoscope was inserted and the abdomen inspected. No injuries from initial trocar placement were noted. The patient was placed in reverse Trendelenburg and tilted slightly to the left. Additional trocars were then inserted in the following locations: a 5 mm trocar in the epigastrium and two 5 mm trocars along the right costal margin. There were dense adhesions to the gallbladder and the cystic duct. The duodenum was abnormally adhered to the CBD and abutting the cystic duct/infundibulum. There was also a liver lesion lateral to the gallbladder fossa. The dome of the gallbladder was grasped with an atraumatic grasper through the lateral port and retracted over the dome of the liver. The infundibulum was also grasped with an atraumatic grasper and retracted laterally. The peritoneum overlying the gallbladder infundibulum was incised and the cystic duct and cystic artery were identified and circumferentially dissected. The cystic artery was adherent to the cystic duct and had multiple adhesions to it, making it hard to dissect free. Cholangiogram A Weber catheter was placed across the base of the gallbladder and the needle was inserted into the adjacent cystic duct. A cholangiogram was obtained and showed good flow of bile into the duodenum, an intact biliary tree. There was a potential filling defect of the CBD, however there was difficulty re-reviewing the all of the images obtained. Of the images available it appeared that there were no obvious defects (however after the case because not all images were available a partial filling defect could not be entirely ruled out. The anatomy was clearly identified with the cystic duct branching off of the CBD and entering directly into the gallbladder at the site where the needle was inserted. The cystic duct was large and clips could not fit across the entire diameter, thus the cystic duct was divided with an endoscopic linear stapler. The cystic artery then able to be further dissected free of adhesions and was then doubly clipped on the staying side and singly on the specimen side, then divided with scissors. There was an accessory artery that also required clipping in order to remove the gallbladder. The gallbladder was then dissected from its peritoneal attachments by electrocautery. Hemostasis was checked. The gallbladder was placed in an endoscopic retrieval bag. The gallbladder fossa was irrigated. Hemostasis obtained. There was no evidence of bleeding from the gallbladder fossa or cystic duct artery or leakage of the bile from the cystic duct stump. Secondary trocars were removed under direct visualization. No bleeding was noted. The laparsocope and Yun cannula were withdrawn. The specimen within the endoscopic retrieval bag was removed from the peritoneal cavity and sent to Pathology. A safety pause was held confirming specimens. The fascia of the midline Yun trocar site was closed with two [id number] 0 vicryl sutures. The skin was closed with subcuticular sutures of 4-0 Monocryl and Dermabond was applied to the incisions. All counts were reported as correct. The OG tube was removed. The patient was extubated and transferred to the recovery room in stable condition. I attest to the content of the Intraoperative Record and any orders documented therein. Any exceptions are noted below.
--- NOTE | 2018-11-26 17:19 | Post Operative Brief Note ---
Immediate Post Op Note v1 Date of Surgery November 26, 2018 Pre & Post Diagnosis Operation Date: 11/26/18 11:00 Pre-Op Diagnosis: Biliary sludge Biliary colic Post-Op Diagnosis: Acute cholecystitis Procedure Operation Date: 11/26/18 11:00 Actual Procedures p Laparoscopic Cholecystectomy with Cholangiogram - Yojana Ricketts MD Surgeon Yojana Ricketts MD Nick Setter none Estimated Blood Loss 10 Findings See Below Fluids 1000 mL Specimens Gallbladder to Pathology Anesthesia Type General Complications none
[2018-11-26] MEDS ORDERED: MEPERIDINE HCL 25 MG/ML CARP ONE (17:37)
[2018-11-26] MEDS ORDERED: GLUCOSE 40% GEL 15 GM TUBE PO PRN (18:42)
[2018-11-26] MEDS ORDERED: GLUCOSE 10 TABS/TUBE PO PRN (18:42)
[2018-11-26] MEDS ORDERED: OXYCODONE HCL IR 5 MG TAB (IMMEDIATE RELEASE) PO PRN ×2 (18:42)
[2018-11-26] MEDS ORDERED: GLUCAGON FOR INJ 1 MG VIAL SQ PRN (18:42)
[2018-11-26] MEDS ORDERED: DEXTROSE 50% 50 ML SYRINGE IV PRN (18:42)
--- NOTE | 2018-11-26 19:08 | Anesthesiology Progress Note ---
Date of Service November 26, 2018 Anesthesia Post Procedure Vital Signs Vital Signs: Temp Pulse Pulse Pulse Resp BP BP 11/26/18 19:02 36.6 C 92 H 17 155/83 H 11/26/18 18:10 37.1 C 84 15 159/89 H 11/26/18 18:00 79 12 162/88 H 11/26/18 17:50 88 14 150/68 H 11/26/18 17:40 77 12 157/89 H 11/26/18 17:30 37.0 C 87 25 H 156/78 H 11/26/18 12:55 36.4 C L 68 20 164/97 H 11/26/18 09:48 36.5 C 72 16 166/92 H 11/26/18 09:03 79 18 151/81 H 11/26/18 08:30 72 18 148/81 H 11/26/18 07:00 71 17 111/61 11/26/18 05:30 70 15 143/85 H 11/26/18 05:16 74 18 11/26/18 05:12 70 16 155/97 H 11/26/18 03:38 36.6 C 80 18 177/107 H Pulse Ox 11/26/18 19:02 96 11/26/18 18:10 98 11/26/18 18:00 98 11/26/18 17:50 98 11/26/18 17:40 100 11/26/18 17:30 95 11/26/18 12:55 97 11/26/18 09:48 95 11/26/18 09:03 97 11/26/18 08:30 95 11/26/18 07:00 96 11/26/18 05:30 11/26/18 05:16 11/26/18 05:12 11/26/18 03:38 96 Pain Intensity Right Abdomen: Pain Intensity: 7 Abdomen: Pain Intensity: 3 Notes Mental Status: alert / awake / arousable Patient Amnestic to Procedure: Yes Nausea / Vomiting: adequately controlled Pain: adequately controlled Airway Patency, RR, SpO2: stable & adequate BP & HR: stable & adequate Hydration State: stable & adequate Anesthetic Complications: no major complications apparent
[2018-11-26] MEDS ORDERED: LIDOCAINE 2% JELLY 5 ML TUBE EXT ONE (19:12)
--- NOTE | 2018-11-26 20:56 | XRay Report ---
XR orbits for MRI CLINICAL HISTORY: 68 years-old Male presenting with prior to MRI. TECHNIQUE: 3 views of the orbits were obtained. COMPARISON: None. FINDINGS: No radiopaque intraorbital foreign body. Bony orbits grossly intact. Paranasal sinuses grossly clear. Visualized portion of the calvarium intact. IMPRESSION: No intraorbital metallic foreign body to preclude MRI exam. Electronically signed by: Junior Meyers M.D. 11/26/2018 8:54 PM
[2018-11-26] MEDS: INSULIN ASPART 100 UNITS/ML 3 ML PEN SC SCH (21:17)
[2018-11-26] MEDS: HYDROmorphone INJ 0.5 MG/0.5 ML SYR IV PRN (22:18)
[2018-11-26] MEDS: ERYTHROMYCIN OP OINT 5 MG/GM 3.5 GM TUBE OPL SCH (22:35)
[2018-11-27] MEDS: ERYTHROMYCIN OP OINT 5 MG/GM 3.5 GM TUBE OPL SCH (02:33)
--- NOTE | 2018-11-27 07:08 | Magnetic Resonance Report ---
Study: MRCP HISTORY: Pain. Nausea. FINDINGS: Dependent atelectatic change right and to lesser extent left basilar regions. There are dem onstrates multiple small microcysts. Dilatation of the intrahepatic and extrahepatic bile duct. Poten tial stenosis in or narrowing proximal and distal common bile duct. Common bile duct is distended at 9 mm. Findings a recent cholecystectomy. Postoperative soft tissue edematous change in the region of the ga llbladder fossa as well as in the anterolateral right abdominal wall region. Bowel pattern suggests a nonobstructive reactive ileus. Kidneys are negative for hydronephrosis. The kidneys demonstrate a Tr gonzalez amount of perinephric infiltrative changes bilaterally. There is a 1.5 cm exophytic left renal cy st. IMPRESSION: 1. Operative changes consistent with a recent cholecystectomy with mild degree of residual infiltrati ve change of the gallbladder fossa region as well as anterolateral chest wall. The bulk of this is si mple unremarkable postoperative change. 2. Dilatation of the intra and extrahepatic biliary ductal system with probable stenotic changes of t he distal common duct as well as proximal common duct. 3. Focal stenotic changes at both sites, with the possibility of an obstructing lesion at both sides a diagnostic possibility. 4. Further evaluation is recommended. Electronically signed by: Nikos Greco M.D. 11/27/2018 7:07 AM
[2018-11-27] MEDS: HYDROmorphone INJ 0.5 MG/0.5 ML SYR IV PRN (07:26)
[2018-11-27 08:08] LABS: Albumin Level 3.1 gm/dl (3.4-5.0); BUN Creatinine Ratio 18.1 (10-20); Bilirubin Direct 0.2 mg/dl (0-0.2); Calcium 8.3 mg/dl (8.5-10.1); Creatinine Clr Calc Pharmacy 112.4 ml/min; Est GFR (African American) 114.4; Est GFR (Non-African American) 98.7; Potassium 3.8 mmol/L (3.5-5.1)
[2018-11-27 08:14] LABS: Total Protein 5.9 gm/dl (6.4-8.2)
[2018-11-27 08:16] LABS: Basophils # (auto) 0.02 K/uL (0-0.2); Basophils % (auto) 0.2 %; Eosinophils # (auto) 0.02 K/uL (0-0.5); Eosinophils % (auto) 0.2 %; Hematocrit (blood only) 38.5 % (42-52); Hemoglobin 13.1 g/dL (14.0-18.0); Immature Granulocytes # (auto) 0.04 K/uL (0.00-0.02); Immature Granulocytes % (auto) 0.3 %; Lymphocytes # (auto) 2.21 K/uL (1.2-3.4); Lymphocytes % (auto) 17.8 %; Mean Platelet Volume 9.5 fL (7.4-10.4); Monocytes # (auto) 0.94 K/uL (0.11-0.59); Monocytes % (auto) 7.6 %; Neutrophils # (auto) 9.19 K/uL (1.4-6.5); Neutrophils % (auto) 73.9 %; Platelet Count 233 K/uL (130-400); RDW Coefficient of Variation 12.9 % (11.5-14.5); RDW Standard Deviation 44.5 fL (36.4-46.3); Red Blood Count 4.14 M/uL (4.7-6.1); White Blood Count 12.42 K/uL (4.8-10.8)
[2018-11-27] MEDS: SODIUM CHLORIDE 0.9% 1000ML 1,000 ML IV SCH (08:28)
[2018-11-27] MEDS: INSULIN ASPART 100 UNITS/ML 3 ML PEN SC SCH ×2 (09:01→12:28)
--- NOTE | 2018-11-27 11:33 | Gastrointestinal Consultation ---
Date of Consultation November 27, 2018 Assessment & Plan (1) Abnormal finding on imagin68 year old male who presented with RUQ pain, nausea post-prandially s/p cholecystectomy 11/26/18 clinically doing well - GI called for abnormal IOC and MRI report. Concern for mass effect given lack of stone on IOC but dilatation of both intra/extra hepatic system w/ focal stenotic changes of the distal and proximal common duct. DDX discussed with pt. He notes he feels well and would like to be D/C home w/ OP follow up. Will discuss with attending OP US w/ ERCP vs OP evaluation LFTs this AM non-obstructive Thank you for allowing us to participate in the care of this patient. Please call with any acute changes, questions or concerns. Please see addendum below with additional recommendation from my supervising physician. Supervising Physician Co-Signing Physician Notes I have seen and examined the patient. Afebrile, nad, no scleral icterus, rrr, abd soft nt nd +bs No rise in bili MRCP reviewed. Pt preference is for outpt eus/ercp. Ok to dc home with this plan per GI. History of Present Illness Reason for Consultation: abnormal IOC Requesting Physician: Liliam Attending Physician: Yojana Ricketts MD History of Present Illness 68 year-old male w/ history of prediabetes, dyslipidemia, HTN who presetned to [facility] ED w/ acute RUQ pain and nausea. ED evaluation significant for normal LFTs, lipase but abd us w/ sludge with trace pericholecystic fluid and mild thickening of the gallbladder fundus now s/p cholecystectomy - GI called for ?abnormal IOC Pt was seen and evaluated, chart reviewed. Upon entering pt room he is eating breakfast and notes he feels well. Abd pain completely resolved. No RUQ pain. No nausea, vomiting. He wants to go home. Denies weight loss, change in BM MRCP: Operative changes consistent with a recent cholecystectomy with mild degree of residual infiltrative change of the gallbladder fossa region as well as anterolateral chest wall. The bulk of this is simple unremarkable postoperative change.Dilatation of the intra and extrahepatic biliary ductal system with probable stenotic changes of the distal common duct as well as proximal common duct.Focal stenotic changes at both sites, with the possibility of an obstructing lesion at both sides a diagnostic possibility. Further evaluation is recommended. IOC: The patient is status post cholecystectomy. Suspected filling defects within the proximal common duct. The appearance of the mid common duct is indeterminate and may be due to suboptimal opacification, mass effect from adjacent structures, or intraluminal filling defects Allergies Allergy/AdvReac Type Severity Reaction Status Date / Time No Known Drug Allergies Allergy Unknown NKDA Verified 11/26/18 13:04 Home Medications Home Medications Medication Instructions Recorded Confirmed Type atorvastatin 20 mg PO DAILY 11/26/18 11/26/18 History cholecalciferol (vitamin D3) 1,000 unit PO DAILY 11/26/18 11/26/18 History [Vitamin D3] lisinopril 20 mg PO DAILY 11/26/18 11/26/18 History metformin 500 mg PO BID 11/26/18 11/26/18 History Patient History Medical History Septic olecranon bursitis of right elbow (Acute 09/04/14) HTN (hypertension) Hx of basal cell carcinoma Kidney stones Surgical History H/O repair of right rotator cuff H/O wisdom tooth extraction S/P right knee arthroscopy Family History Other Cancer Gallbladder disease Heart disease Hypertension Social History Preferred Language: Togolese Communication Ability: Effective [employer] Required: No Beliefs That Will Affect Care: None marital status: Current Living Situation: Spouse current occupational status: retired Other Information That Helps Us Care for You: No Feels Safe at Home: Yes Safety Concerns: Feels Safe At This Time Smoking Status: Never smoker Do You Dip or Chew Tobacco: No Second Hand Exposure: No Tobacco Cessation Education Requested by Patient: No Hx Alcohol Use: Yes Alcohol type: beer, wine and hard liquor Hx Substance Use: No Review of Systems Constitutional: no fever, no body aches and no weight loss Respiratory: no cough, no dyspnea and no wheezing Cardiovascular: no chest pain, no radiating jaw, neck or arm pain, no dyspnea on exertion and no claudication Gastrointestinal: no abdominal pain, no early satiety, no vomiting, no coffee ground emesis, no pain with swallowing, no excessive flatulence, no constipation, no diarrhea/loose stools, no constant urge to pass stools, no b lood in stools and no melena Physical Exam Constitutional: WD/WN, vitals as above well developed Respiratory: normal respiratory effort, lungs clear to auscultation Cardiovascular: RRR, no murmur, no edema Gastrointestinal (Abdomen): normal bowel sounds, soft, nontender, no hepatosplenomegaly Skin: no rashes, warm and dry Results & Data Vital Signs (Past 12 Hours) Vital Signs Temp Pulse Resp BP BP Pulse Ox 11/27/18 07:13 36.7 C 67 16 143/75 H 92 11/27/18 02:29 36.8 C 66 14 136/72 95 11/26/18 23:40 37.3 C 83 14 138/71 93 Laboratory Results 11/27/18 11/27/18 11/27/18 Range/Units 07:58 07:33 07:33 WBC 12.42 H (4.8-10.8) K/uL RBC 4.14 L (4.7-6.1) M/uL Hgb 13.1 L D (14.0-18.0) g/dL Hct 38.5 L (42-52) % MCV 93.0 (80-100) fL MCH 31.6 (25-34) pg MCHC 34.0 (32-36) g/dL RDW Std Deviation 44.5 (36.4-46.3) fL RDW Coeff of Chet 12.9 (11.5-14.5) % Plt Count 233 (130-400) K/uL MPV 9.5 (7.4-10.4) fL Immature Gran % (Auto) 0.3 % Neut % (Auto) 73.9 % Lymph % (Auto) 17.8 % Dodge % (Auto) 7.6 % Eos % (Auto) 0.2 % Baso % (Auto) 0.2 % Immature Gran # (Auto) 0.04 H (0.00-0.02) K/uL Neut # (Auto) 9.19 H (1.4-6.5) K/uL Lymph # (Auto) 2.21 (1.2-3.4) K/uL Dodge # (Auto) 0.94 H (0.11-0.59) K/uL Eos # (Auto) 0.02 (0-0.5) K/uL Baso # (Auto) 0.02 (0-0.2) K/uL Sodium 140 (136-145) mmol/L Potassium 3.8 (3.5-5.1) mmol/L Chloride 107 (98-107) mmol/L Carbon Dioxide 28 (21-32) mmol/L Anion Gap 5.0 (3-11) BUN 12 D (7-18) mg/dl Creatinine 0.67 (0.6-1.4) mg/dl Est Cr Clr Drug Dosing 112.4 ml/min Est GFR ( Amer) 114.4 Est GFR (Non-Af Amer) 98.7 BUN/Creatinine Ratio 18.1 (10-20) Glucose 104 H (70-99) mg/dl POC Glucose 101 H (70-99) Calcium 8.3 L (8.5-10.1) mg/dl Total Bilirubin 1.0 D (0.2-1) mg/dl Direct Bilirubin 0.2 (0-0.2) mg/dl AST 61 H (15-37) U/L ALT 89 H (12-78) U/L Alkaline Phosphatase 54 (45-117) U/L Total Protein 5.9 L D (6.4-8.2) gm/dl Albumin 3.1 L (3.4-5.0) gm/dl Urine Color Urine Appearance (Clear) Urine pH (4.5-7.5) Ur Specific [place] (1.000-1.030) Urine Protein (Negative) Urine Glucose (UA) (Negative) Urine Ketones (Negative) Urine Blood (Negative) Urine Nitrite (Negative) Urine Bilirubin (Negative) Urine Urobilinogen (Negative) Ur Leukocyte Esterase (Negative) Hepatitis C Ab Screen (Neg) 11/26/18 11/26/18 11/26/18 Range/Units 20:55 12:40 03:46 WBC (4.8-10.8) K/uL RBC (4.7-6.1) M/uL Hgb (14.0-18.0) g/dL Hct (42-52) % MCV (80-100) fL MCH (25-34) pg MCHC (32-36) g/dL RDW Std Deviation (36.4-46.3) fL RDW Coeff of Chet (11.5-14.5) % Plt Count (130-400) K/uL MPV (7.4-10.4) fL Immature Gran % (Auto) % Neut % (Auto) % Lymph % (Auto) % Dodge % (Auto) % Eos % (Auto) % Baso % (Auto) % Immature Gran # (Auto) (0.00-0.02) K/uL Neut # (Auto) (1.4-6.5) K/uL Lymph # (Auto) (1.2-3.4) K/uL Dodge # (Auto) (0.11-0.59) K/uL Eos # (Auto) (0-0.5) K/uL Baso # (Auto) (0-0.2) K/uL Sodium (136-145) mmol/L Potassium (3.5-5.1) mmol/L Chloride (98-107) mmol/L Carbon Dioxide (21-32) mmol/L Anion Gap (3-11) BUN (7-18) mg/dl Creatinine (0.6-1.4) mg/dl Est Cr Clr Drug Dosing ml/min Est GFR ( Amer) Est GFR (Non-Af Amer) BUN/Creatinine Ratio (10-20) Glucose (70-99) mg/dl POC Glucose 148 H (70-99) Calcium (8.5-10.1) mg/dl Total Bilirubin (0.2-1) mg/dl Direct Bilirubin (0-0.2) mg/dl AST (15-37) U/L ALT (12-78) U/L Alkaline Phosphatase (45-117) U/L Total Protein (6.4-8.2) gm/dl Albumin (3.4-5.0) gm/dl Urine Color Yellow Urine Appearance Clear (Clear) Urine pH 5.0 (4.5-7.5) Ur Specific [place] 1.021 (1.000-1.030) Urine Protein Negative (Negative) Urine Glucose (UA) Negative (Negative) Urine Ketones Negative (Negative) Urine Blood Negative (Negative) Urine Nitrite Negative (Negative) Urine Bilirubin Negative (Negative) Urine Urobilinogen Negative (Negative) Ur Leukocyte Esterase Negative (Negative) Hepatitis C Ab Screen Neg (Neg)
--- NOTE | 2018-11-27 15:29 | Surgery Progress Note ---
Date of Service November 27, 2018 Assessment & Plan (1) Acute calculous cholecystitis: 68 yo male who presented with concern for symptomatic gallbladder sludge and a dilated CBD on pre-op U/S. He is s/p 11/26/18 laparoscopic cholecystectomy and intra-operative cholangiogram. Intra-op was found to have acute cholecystitis and duodenum was abnormal appearing/adhered to CBD there and there was a liver lesion just lateral to the gallbladder fossa. Do to these findings an MRCP was completed last night and GI was consulted. The MRCP showed narrowing at the proximal and distal CBD. Labs remain within normal limits and patient's pain is resolved and he is tolerating a diet. Thus, it is okay for patient to have remainder of workup as an outpatient. The findings and concerns were discussed with the patient. He will f/u with GI for possible EUS and ERCP. Will obtain a CT scan with liver protocol (discussed with [address] was ordered through [employer]. Main concern is for a cholangiocarcinoma, with alternatives being a periampullary/duodenal tumor, gallbladder tumor, or primary liver tumor. F/u with me in clinic in 2 weeks. Subjective Patient states pain has resolved Denies nausea MRCP completed Tolerated clears Physical Exam Constitutional: no acute distress Respiratory: normal respiratory effort Cardiovascular: Rate/Rhythm: regular rate and regular rhythm Gastrointestinal (Abdomen): soft, nondistended, nontender, incisions clean/dry/intact with overlying Dermabond, no erythema or drainage Results & Data Vital Signs (Past 12 Hours) Vital Signs Temp Pulse Pulse Pulse Resp BP BP 11/27/18 14:02 36.7 C 92 H 86 72 18 136/72 141/72 H 11/27/18 12:40 36.7 C 72 18 141/72 H 11/27/18 07:13 36.7 C 67 16 143/75 H Pulse Ox 11/27/18 14:02 93 11/27/18 12:40 93 11/27/18 07:13 92 Laboratory Results 11/27/18 11/27/18 11/27/18 Range/Units 12:13 07:58 07:33 WBC (4.8-10.8) K/uL RBC (4.7-6.1) M/uL Hgb (14.0-18.0) g/dL Hct (42-52) % MCV (80-100) fL MCH (25-34) pg MCHC (32-36) g/dL RDW Std Deviation (36.4-46.3) fL RDW Coeff of Chet (11.5-14.5) % Plt Count (130-400) K/uL MPV (7.4-10.4) fL Immature Gran % (Auto) % Neut % (Auto) % Lymph % (Auto) % Lamb % (Auto) % Eos % (Auto) % Baso % (Auto) % Immature Gran # (Auto) (0.00-0.02) K/uL Neut # (Auto) (1.4-6.5) K/uL Lymph # (Auto) (1.2-3.4) K/uL Lamb # (Auto) (0.11-0.59) K/uL Eos # (Auto) (0-0.5) K/uL Baso # (Auto) (0-0.2) K/uL Sodium 140 (136-145) mmol/L Potassium 3.8 (3.5-5.1) mmol/L Chloride 107 (98-107) mmol/L Carbon Dioxide 28 (21-32) mmol/L Anion Gap 5.0 (3-11) BUN 12 D (7-18) mg/dl Creatinine 0.67 (0.6-1.4) mg/dl Est Cr Clr Drug Dosing 112.4 ml/min Est GFR ( Amer) 114.4 Est GFR (Non-Af Amer) 98.7 BUN/Creatinine Ratio 18.1 (10-20) Glucose 104 H (70-99) mg/dl POC Glucose 98 101 H (70-99) Calcium 8.3 L (8.5-10.1) mg/dl Total Bilirubin 1.0 D (0.2-1) mg/dl Direct Bilirubin 0.2 (0-0.2) mg/dl AST 61 H (15-37) U/L ALT 89 H (12-78) U/L Alkaline Phosphatase 54 (45-117) U/L Total Protein 5.9 L D (6.4-8.2) gm/dl Albumin 3.1 L (3.4-5.0) gm/dl 11/27/18 11/26/18 Range/Units 07:33 20:55 WBC 12.42 H (4.8-10.8) K/uL RBC 4.14 L (4.7-6.1) M/uL Hgb 13.1 L D (14.0-18.0) g/dL Hct 38.5 L (42-52) % MCV 93.0 (80-100) fL MCH 31.6 (25-34) pg MCHC 34.0 (32-36) g/dL RDW Std Deviation 44.5 (36.4-46.3) fL RDW Coeff of Chet 12.9 (11.5-14.5) % Plt Count 233 (130-400) K/uL MPV 9.5 (7.4-10.4) fL Immature Gran % (Auto) 0.3 % Neut % (Auto) 73.9 % Lymph % (Auto) 17.8 % Lamb % (Auto) 7.6 % Eos % (Auto) 0.2 % Baso % (Auto) 0.2 % Immature Gran # (Auto) 0.04 H (0.00-0.02) K/uL Neut # (Auto) 9.19 H (1.4-6.5) K/uL Lymph # (Auto) 2.21 (1.2-3.4) K/uL Lamb # (Auto) 0.94 H (0.11-0.59) K/uL Eos # (Auto) 0.02 (0-0.5) K/uL Baso # (Auto) 0.02 (0-0.2) K/uL Sodium (136-145) mmol/L Potassium (3.5-5.1) mmol/L Chloride (98-107) mmol/L Carbon Dioxide (21-32) mmol/L Anion Gap (3-11) BUN (7-18) mg/dl Creatinine (0.6-1.4) mg/dl Est Cr Clr Drug Dosing ml/min Est GFR ( Amer) Est GFR (Non-Af Amer) BUN/Creatinine Ratio (10-20) Glucose (70-99) mg/dl POC Glucose 148 H (70-99) Calcium (8.5-10.1) mg/dl Total Bilirubin (0.2-1) mg/dl Direct Bilirubin (0-0.2) mg/dl AST (15-37) U/L ALT (12-78) U/L Alkaline Phosphatase (45-117) U/L Total Protein (6.4-8.2) gm/dl Albumin (3.4-5.0) gm/dl
--- NOTE | 2018-11-29 12:27 | Discharge Summary ---
Date of Service November 29, 2018 Admission HPI Per Admitting Provider Felipe is a pleasant 68 year-old male who presented to emergency department this morning with complaint of abdominal bloating/distention and then pain that began last evening. Ate Easter dinner yesterday afternoon and felt fine. Was able to drive home and watch TV last night without any discomfort. Around 11 pm had bloating and generalized discomfort that resolved and then a few hours later pain woke him up and was unable to get back to sleep. Associated nausea. Bowel movements have been loose since traveling back from [place] in October but regularly scheduled every day. No bloody or black/tarry stools. Has had kidney stones in the past in which he originally thought this was what his pain was but then did not have any trouble urinating, dysuria, or blood in urine. Denies of any fever, chills, sweats, chest pain, shortness of breath, difficulty breathing, or vomiting. No history of gallbladder troubles. ER work-up included labs which showed no leukocytosis. CMP including t. bili and lfts with lipase all wnl. Abdominal ultrasound showing sludge with trace pericholecystic fluid and mild thickening of the gallbladder fundus. CBD dilated at 9 mm. Question of possible adenomyomatosis of the gallbladder fundus. He had Dilaudid around 7:15 am and during examination he was not having any pain or discomfort. Pain on presentation was 8/10. Was very uncomfortable last night. Principal Diagnosis symptomatic biliary colic Discharge Exam Constitutional WD/WN, vitals as above no acute distress and not ill appearing Respiratory normal respiratory effort, lungs clear to auscultation Cardiovascular RRR, no murmur, no edema Gastrointestinal (Abdomen) Inspection/Auscultation: abdomen normal to inspection, + abdomen distended (mild) and normal bowel sounds Percussion/Palpation: + abdomen tender (mild in RUQ) and abdomen soft; no guarding and abdomen not rigid Skin no rashes, warm and dry Psychiatric A+Ox3, euthymic affect Discharge Data Allergies Allergy/AdvReac Type Severity Reaction Status Date / Time No Known Drug Allergies Allergy Unknown NKDA Verified 11/26/18 13:04 Consultations 11/26/18 18:42 Consult Gastroenterology Routine Procedures Performed Operation Date: 11/26/18 11:00 Actual Procedures p Laparoscopic Cholecystectomy with Cholangiogram - Yojana Ricketts MD Ordered Studies 11/26/18 04:21 US gallbladder Urgent 11/26/18 14:00 FL cholangiogram OR Routine 11/27/18 00:04 MR MRCP Urgent Hospital Course (1) Acute calculous cholecystitis: 68 yo male who presented with concern for symptomatic gallbladder sludge and a dilated CBD on pre-op U/S. He was taken to operating room for laparoscopic cholecystectomy and IOC. Intra-op was found to have acute cholecystitis and duodenum was abnormal appearing/adhered to CBD there and there was a liver lesion just lateral to the gallbladder fossa. Do to these findings an MRCP was completed post op and GI was consulted. The MRCP showed narrowing at the proximal and distal CBD. Labs remained within normal limits and patient's pain was resolved and was tolerating a diet on POD # 1. The findings and concerns were discussed with the patient. He will f/u with GI for possible EUS and ERCP. Will obtain a CT scan with liver protocol (discussed with [address] was ordered through [employer]. Main concern is for a cholangiocarcinoma, with alternatives being a periampullary/duodenal tumor, gallbladder tumor, or primary liver tumor. F/u surgical office in 2 weeks. Total Time Total Time Spent Total Time Spent (In Minutes): 45 Total Time Includes: Examination of the Patient, Discharge Planning, Medication Reconciliation and Communication With Other Providers Discharge Plan Discharge Items Patient Disposition: Home - Self-Care Reason For Visit: RUQ ABDOMINAL PAIN Discharge Diagnosis: Acute cholecystitis Biliary duct stricture Liver mass Condition: Good Discharge Goals: Decrease discomfort and Improve function Activity: Per 'Additional Instructions' section Non-emergency contact: Surgeon Call non-emergency contact if: your symptoms worsen, your pain is not controlled, your pain is unusual for you, your pain is concerning for you, you have a fever, your temperature is above 101, your wound has increased redness and your wound has increased drainage Follow-up/Referrals: Jose Carlos Carias MD [Primary Care Provider] - Diet: Low Fat Addtl Provider Instructions: No heavy lifting over 10 pounds for 3-4 weeks No strenuous activity until cleared by surgeon No submerging incisions underwater for 2 weeks (no bathing, swimming, or hot tubs). You may shower this evening. Gently allow soap and water to run over incisions and pat dry. You have surgical glue on your incisions, this will come off on its own Walking and light activity is encouraged to prevent blood clots from forming in your legs. You will be given prescription for Oxycodone as needed for moderate to severe pain. Take as directed. This medication may cause drowsiness and constipation. Recommend stool softener OTC (Colace) while taking narcotic pain medication. You can take extra strength Tylenol (650 mg ) every 6 hours and Ibuprofen (600 mg ) every 6 hours around the clock for the first few days. (Alternate Tylenol and then ibuprofen 3 hours later and then Tylenol again 3 hours later) You will need surgical follow-up in 2 weeks. Please call office at [phone] to make an appointment with Dr. Ricketts Follow-up with [facility] for further work-up of the stricture in the bile ducts. They will scheduled an ERCP/EUS procedure and contact you with more information. Prescriptions: New oxycodone 5 mg Tablet 5 mg PO Q4H PRN (Reason: pain) Qty: 18 RF: 0 Continued metformin 500 mg Tablet 500 mg PO BID RF: 0 atorvastatin 20 mg Tablet 20 mg PO DAILY RF: 0 lisinopril 20 mg Tablet 20 mg PO DAILY RF: 0 cholecalciferol (vitamin D3) [Vitamin D3] 1,000 unit Capsule 1,000 unit PO DAILY RF: 0 Stand-Alone Forms: [facility] Discharge Orders: Discharge Order (Routine); Ordered 11/27/18 Ordered By: Anahy Henriquez Admission Data Admit Date/Time: 11/26/18 08:36 Attending Provider: Yojana Ricketts Admit Provider: Yojana Ricketts Primary Care Provider: Jose Carlos Carias Other Providers: Yojana Mendieta Service: Surgical Services Other Interventions: Discharge Summary Assessment (RN) Last Done: 11/27/18 14:02 DC Date/Time DO NOT enter until pt leaves facility: 11/27/18 14:59
== END 2018-11-27 14:59 | disposition home or self-care (01) ==
LOC: 3N 03:35 → ED 03:35 → 3N 09:22

== ENCOUNTER 2022-03-08 09:34 | Inpatient (IN) ==
[2022-03-08] MEDS ORDERED: SODIUM CHLORIDE 0.9% 1000ML 1,000 ML IV ONE ×2 (09:50→11:53)
[2022-03-08] MEDS ORDERED: CEFEPIME 2,000 MG/20 ML VIAL IV STA (09:51)
--- NOTE | 2022-03-08 10:18 | Emergency Department Note ---
Impression & Plan Bacteremia, Sepsis, Elevated troponin ED Provider Note Name: АЛЕКСАНДР NELSON JR Age: 71 Sex: M Arrives Via: Walk-In Informant: Patient ED Provider: Thomas Douglas MD Chief Complaint: Illness Impression: As per impressions above Medical Decision Making: Pleasant 71-year-old male with history of HTN, DMII, KENTON & cholangiocarcinoma and previous chemotherapy x2 though has not been on chemo for quite some time now. Patient arrives for evaluation of fevers which brought him to the ER last night where blood cultures were obtained. He said it did not initially feeling well and wished to go home. Overnight worsening chills and fatigue. Blood cultures this morning returned positive in 2 bottles already and PCR reveals this is Klebsiella. He is advised to come back to the ER and agreed. On evaluation patient appears comfortable he has no specific complaints other than feeling a bit washed out. Labs obtained including repeat blood cultures and lactic acid. He was given 1 L IV saline empirically. He was given cefepime empirically for coverage. This was done after blood cultures were obtained. Unclear source as he recently had a dental procedure though has no dental pain, has an indwelling port in left upper chest that this is nontender no erythema, has a stent in his biliary duct though has no current abdominal pain or tenderness palpation and LFTs are okay at this time. Of further concern is his troponin is somewhat elevated though EKG is not overly concerning. I suspect this is more demand ischemia type thing in the setting of dehydration from sepsis and bacteremia. He has no chest pain I do think starting anticoagulation indicated and clearly no indication for Instructional Services Specialist at this time. He does have an elevated lactic acid and an elevated procalcitonin. I do feel he is septic at this time and other findings he this is severe sepsis. He already had blood cultures obtained was given empiric antibiotics and obviously her initial lactic acidosis was repeated which was normal on repeat. Hospitalist then to evaluate further and patient comfortable. I did give a second liter of fluid after the first as he tolerated it well. He is not hypotensive and lactic acid is not greater than 4 this is a full immediate 30 mg/kg bolus is not indicated. Prior Medical Record and Triage/Nursing Notes reviewed by Me Additional history obtained from chart Differentials:Viral syndrome, otitis, pharyngitis, pneumonia, influenza, meningitis, urinary tract infection, sepsis, bacteremia, as well as other pathologies. Vital Signs: reviewed and remarkable for no significant abnormalities Interventions: Saline 1 L IV x2, cefepime 2 g IV Labs:Reviewed and remarkable for elevated troponin, elevated procalcitonin, el evated lactic acid EKG:Per My Interpretation: Indication Sepsis: NSR 68 bpm, qtc 440. No Ectopy. No Ischemia. Compared to EKG 03/07/22, no significant changes though heart rate much lower Consults:Dejan hospitalist Plan: Disposition:Hospitalization. Condition: Good History of Present Illness:71-year-old gentleman arrives for evaluation of fever. Patient with known history of cholangiocarcinoma and a biliary stent as well as left port. He has had 2 rounds of chemo is over the last 3 years is not currently on any chemotherapy. He has had previous radiation as well. Patient notes he had some dental work last week was on amoxicillin. He was feeling well until yesterday when he developed a fever. He was seen in the ER where blood cultures were obtained and patient given some fluids and antipyretics with vast improvement. Given feeling well unremarkable work-up decision to discharge home at that time. Patient states she did start getting fevers again overnight but took some Tylenol this morning with improvement. Patient states he feels pretty washed out, tired, a bit shaky and weak. He denies any difficulty breathing, chest pain, shortness of breath, back pain, abdominal pain, leg swelling, rashes, headache, runny nose no other concerning signs or symptoms. He denies any dental pain and notes the dental work was implanted in his right upper molar which is not giving him any problems or discomfort. Testing yesterday was negative. Patient returns to the ER because he had positive blood cultures in 2 bottles which grew out Klebsiella. He was given a p.o. dose of Omnicef last night. He has not started any antibiotic this morning. ROS: See above HPI for pertinent positives & negatives. A total of 10 systems r eviewed and were otherwise negative. Past Medical History:See Below Past Surgical History:See Below Family History:See Below Social History:See Below Home Medications:See Below Allergies:nkda Vitals:Blood Pressure: 144/79, Pulse 79, RR 18, T 36.8C, O2 98% on RA Physical Exam: GENERAL: Patient is tired appearing and in minimal distress. EYES: No scleral icterus, unremarkable pupils. ENT: Mucous membranes moist, no nasal congestion. NECK: No masses appreciated, nomeningismus, trachea is midline. RESPIRATORY: No dyspnea. Clear to auscultation and equal bilaterally. No wheeze, no rhonchi. CARDIOVASCULAR: Regular rate and rhythm.No murmurs, rubs, gallops appreciated. GASTROINTESTINAL: Abdomen soft, non-tender, no peritonitis.Bowel sounds positive.No masses appreciated. BACK: No midline tenderness, no CVA tenderness EXTREMITIES: Normal motion all extremities, no cyanosis, no edema. NEUROLOGIC: Alert and oriented, no acute motor or sensory deficits, no focal weakness, cranial nerves grossly intact. SKIN: No rash, no jaundice, no diaphoresis. PSYCH: Appropriate GCS: 15 ED Course: Times/Reassessments: Stable comfortable reading the newspaper and in no distress. Agreeable to hospitalization. 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 HTN (hypertension) Hx of basal cell carcinoma left cheek-appx 2014 m[facility] surgery done [facility] Kidney stones KENT[place] on CPAP Port-A-Cath in place Septic olecranon bursitis of right elbow (09/04/14) T2DM (type 2 diabetes mellitus) Surgical History H/O repair of right rotator cuff 2016 H/O wisdom tooth extraction History of cholecystectomy 11/27/18 History of exploratory laparotomy intention was for liver resection but Surgeon found 2 cancerous spots on stomach one on omentum. S/P right knee arthroscopy 2018 Family History Father , MRSA infection age 3 No problems noted. Mother , ovarian cancer age 80 parvin Ovarian cancer Daughter No problems noted. Daughter No problems noted. Other Cancer Gallbladder disease Heart disease Hypertension Social History Smoking Status: Never smoker Second Hand Exposure: No; Hx Alcohol Use: Yes Alcohol type: beer, wine and hard liquor Hx Substance Use: No Preferred Language: German Communication Ability: Effective Director Of Student Aid Required: No Beliefs That Will Affect Care: None marital status: Current Living Situation: Spouse current occupational status: retired Feels Safe at Home: Yes Safety Concerns: Feels Safe At This Time Childhood Exposure to Second-Hand Smoke: No Assistive Devices: CPAP and Glasses Allergies Allergies Allergy/AdvReac Type Severity Reaction Status Date / Time No Known Allergies Allergy Verified 03/07/22 19:46 Home Meds Home Medications Medication Instructions Recorded Confirmed atorvastatin 20 mg tablet 20 mg PO HS 11/26/18 03/08/22 cholecalciferol (vitamin D3) 25 1,000 unit PO DAILY 11/26/18 03/08/22 mcg (1,000 unit) capsule (Vitamin D3) lisinopril 20 mg tablet 20 mg PO BID 11/26/18 03/08/22 metformin 1,000 mg tablet 1,000 mg PO BID 11/04/19 03/08/22 doxycycline hyclate 100 mg capsule 200 mg PO DAILY PRN tick bite 04/21/20 03/08/22 oxycodone 5 mg tablet 5 mg PO Q4H PRN Pain 10/21/20 03/08/22 gabapentin 300 mg capsule 300 mg PO AMHS 10/26/21 03/08/22 aspirin 81 mg tablet,delayed 81 mg PO DAILY 03/08/22 03/08/22 release multivitamin 1 tab PO DAILY 03/08/22 03/08/22 Results & Data (ED) Vital Signs Vital Signs - 24 hr 03/08/22 09:46 03/08/22 10:30 03/08/22 10:34 Temperature 36.8 C Temperature Source Oral Pulse Rate 79 74 Pulse Rate [Apical] 70 Pulse Rate from SpO2 Sensor 72 Pulse Rhythm Regular Pulse Rhythm [Apical] Regular Pulse Strength Normal Pulse Strength [Apical] Normal Respiratory Rate 18 16 25 H Respiratory Effort / Characteristics Non-Labored Spontaneous Non-Labored Spontaneous Respiratory Depth Normal Normal Respiratory Pattern Regular Regular Blood Pressure 144/79 H Blood Pressure [Right Arm] 119/70 Blood Pressure Mean 100 Blood Pressure Mean [Right Arm] 86 Blood Pressure Position Sitting Blood Pressure Position [Right Arm] Sitting Pulse Oximetry 98 96 93 Oxygen Delivery Method Room Air Room Air Sepsis Recent Fever Within 48 Hours Yes Sepsis New/Unexplained Change in Mental Status No Sepsis Action Taken by Nursing No Action Required 03/08/22 11:00 03/08/22 11:00 03/08/22 11:30 Temperature Temperature Source Pulse Rate 73 Pulse Rate [Apical] Pulse Rate from SpO2 Sensor Pulse Rhythm Pulse Rhythm [Apical] Pulse Strength Pulse Strength [Apical] Respiratory Rate 15 Respiratory Effort / Characteristics Respiratory Depth Respiratory Pattern Blood Pressure 112/60 102/61 Blood Pressure [Right Arm] Blood Pressure Mean 77 74 Blood Pressure Mean [Right Arm] Blood Pressure Position Blood Pressure Position [Right Arm] Pulse Oximetry Oxygen Delivery Method Sepsis Recent Fever Within 48 Hours Sepsis New/Unexplained Change in Mental Status Sepsis Action Taken by Nursing 03/08/22 11:30 03/08/22 12:00 03/08/22 12:00 Temperature Temperature Source Pulse Rate 66 70 Pulse Rate [Apical] Pulse Rate from SpO2 Sensor 62 71 Pulse Rhythm Pulse Rhythm [Apical] Pulse Strength Pulse Strength [Apical] Respiratory Rate 15 23 Respiratory Effort / Characteristics Respiratory Depth Respiratory Pattern Blood Pressure 132/71 Blood Pressure [Right Arm] Blood Pressure Mean 91 Blood Pressure Mean [Right Arm] Blood Pressure Position Blood Pressure Position [Right Arm] Pulse Oximetry 97 Oxygen Delivery Method Sepsis Recent Fever Within 48 Hours Sepsis New/Unexplained Change in Mental Status Sepsis Action Taken by Nursing Laboratory Data Result diagrams: 03/08/22 10:12 03/08/22 10:12 Lab Results 03/08/22 03/08/22 03/08/22 Range/Units 10:12 10:12 10:12 WBC 7.33 (4.8-10.8) K/ul RBC 3.54 L (4.63-6.08) M/uL Hgb 11.7 L (14.0-18.0) g/dl Hct 34.5 L (40.1-51.0) % MCV 97.5 (80.0-100.0) fL MCH 33.1 (25.0-34.0) pg MCHC 33.9 (32.0-36.0) g/dL RDW Std Deviation 46.8 H (36.4-46.3) fL RDW Coeff of Chet 13.0 (11.5-14.5) % Plt Count 184 (130-400) K/uL MPV 9.7 (9.4-12.4) fL Immature Gran % (Auto) 0.5 % Neut % (Auto) 79.0 % Lymph % (Auto) 9.4 % Charlotte % (Auto) 10.4 % Eos % (Auto) 0.3 % Baso % (Auto) 0.4 % Neut # (Auto) 5.79 (1.4-6.5) K/uL Lymph # (Auto) 0.69 L (1.2-3.4) K/uL Charlotte # (Auto) 0.76 (0.24-0.82) K/uL Eos # (Auto) 0.02 (0-0.50) K/uL Baso # (Auto) 0.03 (0-0.2) K/uL Immature Gran # (Auto) 0.04 H (0.00-0.02) K/uL Sodium 134 L (136-145) mmol/L Potassium 4.3 (3.5-5.1) mmol/L Chloride 101 (98-107) mmol/L Carbon Dioxide 25 (21-32) mmol/L Anion Gap 8 (3-11) BUN 24 H (6-23) mg/dl Creatinine 0.87 (0.6-1.4) mg/dl Est Cr Clr Drug Dosing 84.3 ml/min Est GFR ( Amer) 100.6 ml/min Est GFR (Non-Af Amer) 86.8 ml/min BUN/Creatinine Ratio 27.6 H (10-20) Glucose 108 H (70-99(Fasting)) mg/dl Lactate 2.5 H* (0.4-2.0) mmol/L Calcium 9.0 (8.5-10.1) mg/dl Total Bilirubin 0.8 (0.2-1.0) mg/dl Direct Bilirubin 0.3 H (0-0.2) mg/dl AST 35 (13-39) U/L ALT 43 (7-52) U/L Alkaline Phosphatase 146 H (34-104) U/L Troponin I High Sens 93.8 H* D (0-20) pg/ml Total Protein 6.0 (6.0-8.3) gm/dl Albumin 3.5 (3.4-5.0) gm/dl Lipase 16 (11-82) U/L Procalcitonin (0-0.5) ng/ml 03/08/22 Range/Units 10:12 WBC (4.8-10.8) K/ul RBC (4.63-6.08) M/uL Hgb (14.0-18.0) g/dl Hct (40.1-51.0) % MCV (80.0-100.0) fL MCH (25.0-34.0) pg MCHC (32.0-36.0) g/dL RDW Std Deviation (36.4-46.3) fL RDW Coeff of Chet (11.5-14.5) % Plt Count (130-400) K/uL MPV (9.4-12.4) fL Immature Gran % (Auto) % Neut % (Auto) % Lymph % (Auto) % Charlotte % (Auto) % Eos % (Auto) % Baso % (Auto) % Neut # (Auto) (1.4-6.5) K/uL Lymph # (Auto) (1.2-3.4) K/uL Charlotte # (Auto) (0.24-0.82) K/uL Eos # (Auto) (0-0.50) K/uL Baso # (Auto) (0-0.2) K/uL Immature Gran # (Auto) (0.00-0.02) K/uL Sodium (136-145) mmol/L Potassium (3.5-5.1) mmol/L Chloride (98-107) mmol/L Carbon Dioxide (21-32) mmol/L Anion Gap (3-11) BUN (6-23) mg/dl Creatinine (0.6-1.4) mg/dl Est Cr Clr Drug Dosing ml/min Est GFR ( Amer) ml/min Est GFR (Non-Af Amer) ml/min BUN/Creatinine Ratio (10-20) Glucose (70-99(Fasting)) mg/dl Lactate (0.4-2.0) mmol/L Calcium (8.5-10.1) mg/dl Total Bilirubin (0.2-1.0) mg/dl Direct Bilirubin (0-0.2) mg/dl AST (13-39) U/L ALT (7-52) U/L Alkaline Phosphatase (34-104) U/L Troponin I High Sens (0-20) pg/ml Total Protein (6.0-8.3) gm/dl Albumin (3.4-5.0) gm/dl Lipase (11-82) U/L Procalcitonin 4.37 H (0-0.5) ng/ml Administered Medications Acetaminophen (Acetaminophen 325 Mg Tab) 650 mg PO Q4H PRN PRN Reason: Pain or Fever Stop: 04/07/22 14:53 Last Admin: 03/08/22 20:35 Dose: 650 mg Documented By: ROSY Atorvastatin Calcium (Atorvastatin 20 Mg Tab) 20 mg PO HS [place] Stop: 04/07/22 20:59 Last Admin: 03/08/22 20:44 Dose: 20 mg Documented By: ROSY Enoxaparin Sodium (Enoxaparin Inj 40 Mg/0.4 Ml Syr) 40 mg SQ Q24H [place] Stop: 04/07/22 21:59 Last Admin: 03/08/22 20:46 Dose: 40 mg Documented By: ROSY Gabapentin (Gabapentin 300 Mg Cap) 300 mg PO AMHS [place] Stop: 04/07/22 20:59 Last Admin: 03/08/22 20:45 Dose: 300 mg Documented By: ROSY Piperacillin Sod/Tazobactam (Sod 4.5 gm/ Dextrose) 120 mls @ 30 mls/hr IV Q8H [place]; Protocol Stop: 03/18/22 19:59 Last Admin: 03/08/22 20:39 Dose: 30 mls/hr Documented By: ROSY Insulin Aspart (Insulin Aspart Per Unit) 0 units SC ACHS [place] Stop: 04/07/22 16:29 Last Admin: 03/08/22 20:45 Dose: Not Given Documented By: Admin: 03/08/22 17:24 Dose: Not Given Documented By: MS Discontinued Medications Sodium Chloride (Nss 1000ml) 1,000 mls @ 999 mls/hr IV .Q1H1M ONE Stop: 03/08/22 10:50 Last Infusion: 03/08/22 12:19 Dose: 0 mls/hr Documented By: Admin: 03/08/22 10:25 Dose: 999 mls/hr Documented By: MAXINE Cefepime HCl (Maxipime) 2,000 mg in 20 mls @ 5 mls/min IV NOW STA; Protocol Stop: 03/08/22 09:54 Last Admin: 03/08/22 10:25 Dose: 5 mls/min Documented By: JLT Sodium Chloride (Nss 1000ml) 1,000 mls @ 999 mls/hr IV .Q1H1M ONE Stop: 03/08/22 12:53 Last Infusion: 03/08/22 13:34 Dose: 0 mls/hr Documented By: Admin: 03/08/22 12:19 Dose: 999 mls/hr Documented By: AM Piperacillin Sod/Tazobactam (Sod 4.5 gm/ Dextrose) 120 mls @ 200 mls/hr IV NOW ONE; Protocol Stop: 03/08/22 16:05 Last Infusion: 03/08/22 17:41 Dose: 0 mls/hr Documented By: Admin: 03/08/22 17:00 Dose: 200 mls/hr Documented By: MS Discharge Plan Visit Data Chief Complaint: Abnormal Labs/Diagnostic Testing Stated Complaint: ABNORMAL LABS ED Provider: Thomas Douglas Discharge Problem: Bacteremia, Sepsis, Elevated troponin Patient Disposition: Admitted As Inpatient Discharge Instructions Interventions: ED Discharge Assessment Last Done: 03/08/22 15:16 : Sepsis Qualifiers: Sepsis type: sepsis due to unspecified organism Sepsis acute organ dysfunction status: without acute organ dysfunction Qualified Code(s): A41.9 - Sepsis, unspecified organism
[2022-03-08 10:22] LABS: Basophils # (auto) 0.03 K/uL (0-0.2); Basophils % (auto) 0.4 %; Eosinophils # (auto) 0.02 K/uL (0-0.50); Eosinophils % (auto) 0.3 %; Hematocrit (blood only) 34.5 % (40.1-51.0); Hemoglobin 11.7 g/dl (14.0-18.0); Immature Granulocytes # (auto) 0.04 K/uL (0.00-0.02); Immature Granulocytes % (auto) 0.5 %; Lymphocytes # (auto) 0.69 K/uL (1.2-3.4); Lymphocytes % (auto) 9.4 %; Mean Corpuscular Hemoglobin 33.1 pg (25.0-34.0); Mean Corpuscular Hgb Conc 33.9 g/dL (32.0-36.0); Mean Corpuscular Volume 97.5 fL (80.0-100.0); Mean Platelet Volume 9.7 fL (9.4-12.4); Monocytes # (auto) 0.76 K/uL (0.24-0.82); Monocytes % (auto) 10.4 %; Neutrophils # (auto) 5.79 K/uL (1.4-6.5); Platelet Count 184 K/uL (130-400); RDW Standard Deviation 46.8 fL (36.4-46.3); Red Blood Count 3.54 M/uL (4.63-6.08); White Blood Count 7.33 K/ul (4.8-10.8)
[2022-03-08 11:39] LABS: Albumin Level 3.5 gm/dl (3.4-5.0); BUN Creatinine Ratio 27.6 (10-20); Bilirubin Direct 0.3 mg/dl (0-0.2); Bilirubin,Total 0.8 mg/dl (0.2-1.0); Creatinine Clr Calc Pharmacy 84.3 ml/min; Est GFR (African American) 100.6 ml/min; Est GFR (Non-African American) 86.8 ml/min; Potassium 4.3 mmol/L (3.5-5.1); Troponin I High Sensitivity 93.8 pg/ml (0-20)
--- NOTE | 2022-03-08 11:58 | History & Physical Report ---
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 Patient presented to ER on 03/07/2022 secondary to fever that started the same day. He underwent full work-up including blood cultures. Blood cultures were even drawn from his port. He underwent CT abdomen pelvis which showed satisfactory positioning of the CBD stent. 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 Also noted was upper abdominal omental and peritoneal nodules suggestive of metastasis.his blood cultures returned positive for Enterobacter and Klebsiella oxytoca. He was referred back to the ER. Patient presented today with known positive blood cultures. He has been signs are stable and his WBC count was WNL. He did have a mild lactic acidosis which resolved after receiving IV fluid. His procalcitonin also increased from 1.72-4.37. He received IV cefepime in ED. Sepsis Bacteremia -Klebsiella and Enterobacter Admit to PCU Start empiric IV Zosyn Obtain echocardiogram Repeat blood cultures ordered and drawn today, also from Port-A-Cath site, if persistently positive or febrile will need additional cultures run in am Consult gastroenterology as a stent possible etiology of bacteremia Consult infectious disease as well May eventually need general surgery consultation regarding Port-A-Cath site if this is the source Patient urinalysis negative. Chest x-ray negative. CT abdomen pelvis shows CBD stent with findings as above. No acute infectious intra-abdominal pathology pt does report recent dental work ~ 1 week ago as well in which he completed antibiotics for CBD stent placed 02/25 and post op antibiotics completed Lactic acidosis Resolved with IV fluid resuscitation - 2L Elevated troponin No chest pain or EKG changes Initial troponin 93.8, repeat in 2 hours 79.5 Likely type II NSTEMI in setting of sepsis Cycle troponins for completeness Obtain echo Repeat EKG in the morning Metastatic cholangiocarcinoma Diagnosed in November 2018 Status postcholecystectomy Follows [facility] oncology He received 2 rounds of chemotherapy thus far as well as 1 round of radiation Recently had a CBD stent placed on 02/25 secondary to elevated LFTs This is much improved as AST and ALT are normal and direct bili improved from 0.8-0.3 Mild abdominal pain T2DM Well-controlled, hold metformin NovoLog per protocol HTN Blood pressure normal Resume lisinopril tomorrow with parameters KENTON on CPAP CPAP at bedtime DVT ppx: SQ Lovenox Diet: Carb Controlled, NPO after midnight in event any procedure indicated PCP: Jv FULL CODE Dispo PCU Pt was seen and examined in collaboration with Dr. Montanez, please see addendum History of Present Illness Chief Complaint: Fever x 1 day. 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 Patient follows [facility] oncology. He was initially diagnosed in November 2018 postcholecystectomy with metastatic cholangiocarcinoma. So far he has had 2 rounds of chemotherapy as well as 1 round of radiation. His last chemotherapy was at the end of February 2021. He does have a port placed in his left anterior chest wall. This was placed by Dr. Live approximately 1-1/2 years ago. Of significance patient underwent stenting in CBD 02/24/22 secondary to elevated LFTs. Tx with course of antibiotics x 7 days. Also had tooth extraction in August and a post and bone graft material a few days after stent was placed. He completed antibiotics on Monday, 1 day ago. He was feeling well until the past 1 to 2 days. Yesterday he complained of fever of 101.5 and chills. He came to ER and underwent full work up. He was given tylenol and fluids and fever reduced. Given no specific findings pt wanted to be d/c to home. Unfortunately his blood cultures tested positive for Klebsiella and Enterobacter and therefore he was directed to return back to ED. Since stent he has had abdominal pain that comes and goes, located RUQ, under rib cage. Pain has improved since stent placement. He is using oxycodone as needed for pain. Nothing makes pain worse. He denies diarrhea, nausea, vomiting, dysuria, increased urg/freq, melena, hematochezia, sweats, chest pain, shortness of breath, palpitations, cough, hemoptysis, URI symptoms. Feels his stamina isn't what it use to be but is still active outside doing yard work. Past two days hasn't had energy like normal. Overall good appetite. Last BM was 2 days ago. No recent rash or tick bites that he is aware of. In ED patient remained hemodynamically stable. Lab work consistent with H&H 11.7 and 34.5, sodium 134, BUN 24, glucose 108, troponin 97, lactic acid 2.6, direct bilirubin 0.3. Procalcitonin went from 1.72 to 4.37. He was initiated on IV cefepime. He was started on 2 L of IV fluid. Allergies Allergy/AdvReac Type Severity Reaction Status Date / Time No Known Allergies Allergy Verified 03/07/22 19:46 Home Medications Medication Instructions Recorded Confirmed Type atorvastatin 20 mg tablet 20 mg PO HS 11/26/18 03/08/22 History cholecalciferol (vitamin D3) 25 1,000 unit PO DAILY 11/26/18 03/08/22 History mcg (1,000 unit) capsule (Vitamin D3) lisinopril 20 mg tablet 20 mg PO BID 11/26/18 03/08/22 History metformin 1,000 mg tablet 1,000 mg PO BID 11/04/19 03/08/22 History doxycycline hyclate 100 mg capsule 200 mg PO DAILY PRN tick bite 04/21/20 03/08/22 History oxycodone 5 mg tablet 5 mg PO Q4H PRN Pain 10/21/20 03/08/22 History gabapentin 300 mg capsule 300 mg PO AMHS 10/26/21 03/08/22 History aspirin 81 mg tablet,delayed 81 mg PO DAILY 03/08/22 03/08/22 History release multivitamin 1 tab PO DAILY 03/08/22 03/08/22 History Past Med/Surg History Medical History (Updated 03/08/22 @ 13:17 by Carmita Lira PA-C) Acute calculous cholecystitis 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 HTN (hypertension) Hx of basal cell carcinoma left cheek-appx 2014 mohs surgery done [facility] Kidney stones KENTON on CPAP Port-A-Cath in place Septic olecranon bursitis of right elbow (09/04/14) T2DM (type 2 diabetes mellitus) Surgical History H/O repair of right rotator cuff 2016 H/O wisdom tooth extraction History of cholecystectomy 11/27/18 History of exploratory laparotomy intention was for liver resection but Surgeon found 2 cancerous spots on stomach one on omentum. S/P right knee arthroscopy 2018 Family History Father , MRSA infection age 3 No problems noted. Mother , ovarian cancer age 80 parvin Ovarian cancer Daughter No problems noted. Daughter No problems noted. 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 Montanez addendum for physical exam findings. Results & Data Results & Data ([facility]) Vital Signs (Past 12 Hours) Vital Signs Temp Pulse Pulse Resp BP BP Pulse Ox 03/08/22 10:30 70 16 119/70 96 03/08/22 09:46 36.8 C 79 18 144/79 H 98 O2 Del Method 03/08/22 10:30 Room Air 03/08/22 09:46 Room Air Diagnostic Findings CT abd/pelvis from 03/07 Abdomen/Pelvis CT 03/07/22 16:[address] WITH IV CONTRAST CT DOSE: 351.95 mGy.cm HISTORY: Acute generalized abdominal pain with fever Abd pain, fever, recent ERCP with stent TECHNIQUE: Multiaxial CT images of the abdomen and pelvis were performed following the IV administration of Optiray, A dose lowering technique was utilized adhering to the principles of ALARA. COMPARISON STUDY: CT radiation therapy study 10/24/2019, MRI abdomen 10/04/[address] 02/27/2019 (these comparison studies are from outside institutions without accompanying report with images only. FINDINGS: Linear subsegmental bibasilar atelectasis versus scarring of the lung bases. No pneumatosis or pneumoperitoneum. The spleen, pancreas and mildly thickened adrenal glands are unremarkable. The common bile duct stent is in place which is air and debris filled appearing to be in satisfactory positioning. Left hepatic lobe predominant intrahepatic and extrahepatic biliary ductal dilation is redemonstrated with possible underlying mass of the hilar confluence. Unchanged scattered cystic foci of the liver. Findings suggestive of chronic occlusion of the left portal vein. 9 mm nonobstructing calculus of the inferior pole left kidney. Symmetric enhancement of the kidneys without hydronephrosis. There are several dependent calculi within the urinary bladder measuring up to 6 mm there prostamegaly. Urinary bladder wall thickening with mild perivesicular stranding. Prostamegaly. Atherosclerosis of the aorta. Nodular foci are noted within the omentum/peritoneum measuring up to 9 mm on image 121. These foci appear to be new from comparison. Mild nonspecific distal esophageal wall thickening. Trace free pelvic fluid. Moderate fecal retention. Normal appendix. Fat filled ventral abdominal wall hernias measure up to 2.7 cm within the upper abdomen. No acute fracture or new destructive bone lesion. IMPRESSION: 1. Satisfactory positioning of the common bile duct stent. Left hepatic lobe predominant intrahepatic with associated extrahepatic biliary ductal dilation redemonstrated along with an ill-defined central hepatic mass resulting in chronic appearing occlusion of the left portal vein. 2. Upper abdominal omental/peritoneal nodules suggestive of metastasis. 3. No bowel obstruction or bowel wall thickening. 4. Prostamegaly with findings suggestive of chronic bladder outlet obstruction. Correlate with urinalysis to exclude cystitis. 5. Nonobstructing left nephrolithiasis with urinary bladder calculi. 6. Additional findings as above. Medications Administered Medication List Discontinued Medications Sodium Chloride (Nss 1000ml) 1,000 mls @ 999 mls/hr IV .Q1H1M ONE Stop: 03/08/22 10:50 Last Admin: 03/08/22 10:25 Dose: 999 mls/hr Documented By: MAXINE Cefepime HCl (Maxipime) 2,000 mg in 20 mls @ 5 mls/min IV NOW STA; Protocol Stop: 03/08/22 09:54 Last Admin: 03/08/22 10:25 Dose: 5 mls/min Documented By: MAXINE ECG Rate (beats per minute): 68 Rhythm: normal sinus COVID-19 Results Results COVID-19 Adm Lab Results: RBC 3.54 M/uL (4.63-6.08) L 03/08/22 WBC 7.33 K/ul (4.8-10.8) 03/08/22 Hgb 11.7 g/dl (14.0-18.0) L 03/08/22 Hct 34.5 % (40.1-51.0) L 03/08/22 Plt Count 184 K/uL (130-400) 03/08/22 Neutrophils (%) (Auto) 79.0 % 03/08/22 Lymphocytes (%) (Auto) 9.4 % 03/08/22 Monocytes # (Auto) 0.76 K/uL (0.24-0.82) 03/08/22 Eosinophils # (Auto) 0.02 K/uL (0-0.50) 03/08/22 Immature Granulocyte % (Auto) 0.5 % 03/08/22 Neutrophils # (Auto) 5.79 K/uL (1.4-6.5) 03/08/22 Lymphocytes # (Auto) 0.69 K/uL (1.2-3.4) L 03/08/22 Monocytes # (Auto) 0.76 K/uL (0.24-0.82) 03/08/22 Eosinophils # (Auto) 0.02 K/uL (0-0.50) 03/08/22 Basophils # (Auto) 0.03 K/uL (0-0.2) 03/08/22 Immature Granulocyte # (Auto) 0.04 K/uL (0.00-0.02) H 03/08 Na 134 mmol/L (136-145) L 03/08/22 K 4.3 mmol/L (3.5-5.1) 03/08/22 Cl 101 mmol/L (98-107) 03/08/22 CO2 25 mmol/L (21-32) 03/08/22 Anion Gap 8 (3-11) 03/08/22 BUN 24 mg/dl (6-23) H 03/08/22 Creatinine 0.87 mg/dl (0.6-1.4) 03/08/22 BUN/Creatinine Ratio 27.6 (10-20) H 03/08/22 Glucose Level 108 mg/dl (70-99(Fasting)) H 03/08/22 Ca 9.0 mg/dl (8.5-10.1) 03/08/22 Total Bilirubin 0.8 mg/dl (0.2-1.0) 03/08/22 Direct Bilirubin 0.3 mg/dl (0-0.2) H 03/08/22 AST/SGOT 35 U/L (13-39) 03/08/22 ALT/SGPT 43 U/L (7-52) 03/08/22 Alkaline Phosphatase 146 U/L (34-104) H 03/08/22 Total Protein 6.0 gm/dl (6.0-8.3) 03/08/22 Albumin 3.5 gm/dl (3.4-5.0) 03/08/22 Procalcitonin 4.37 ng/ml (0-0.5) H 03/08/22 Code Status & VTE Plan Code Status FULL CODE Supervising Physician Co-Signing Physician Notes Pt is a 71 y/o M with hx of metastatic hepatobiliary carcinoma s/p chemoradiation, KENTON on CPAP, DMII, HLD, GERD, recent ERCP with common bile duct stent placement (on 02/17) and tooth procedure s/p abx treatment admitted for sepsis. At bedside: pt complained of fatigue and chills. Denied any abd pain, CP, SOB, N/V. PE: NAD, well developed HEENT: normal oral exam, no gum erythema or swelling Lungs: Port on the Left chest wall, CTA, no wheezing or crackles Abd: RUQ scar in place with small reducible hernia, ND, NT, soft and normal BS MSK: No LE edema Psych: AAOx3, normal affect A/P: Sepsis: -unknown source -PCR positive for enterobacter, and Klebsiella -BCx: + for Gram neg bacilli -Lactic acid was elevated: improving with fluids -will collect Bcx from the port as well -started the pt on zosyn -will hold his HTN meds tonight and restart with parameters (hold meds for BP<120/60) - due to recent ERCP with stent placement will consult GI Elevated trop: -pt denied any CP -EKG: NSR, LAD, possible TW flattening on Lead III, II and avF (but some artifact on the EKG) -will trend trop, echo, and repeat EKG in the morning Metastatic hepatobiliary carcinoma with recent common bile duct stent placement: -pts LFTs were elevated prior to the procedure --- improving -AST, ALT are normal but Alk phos is elevated (better then previous lab) -will continue to trend CMP Other chronic conditions: plan as above Agree with A/P by Carmita Lira PA-C
[2022-03-08] MEDS ORDERED: GLUCOSE 40% GEL 15 GM TUBE PO PRN (14:54)
[2022-03-08] MEDS ORDERED: ALUMINUM/MAGNESIUM SUSP 30 ML UDC PO PRN (14:54)
[2022-03-08] MEDS ORDERED: GLUCAGON FOR INJ 1 MG VIAL SQ PRN (14:54)
[2022-03-08] MEDS ORDERED: MAGNESIUM HYDROXIDE SUSP 30 ML UDC PO PRN (14:54)
[2022-03-08] MEDS ORDERED: DEXTROSE 50% 50 ML SYRINGE IV PRN (14:54)
[2022-03-08] MEDS ORDERED: GLUCOSE 10 TAB/TUBE PO PRN (14:54)
[2022-03-08] MEDS ORDERED: oxyCODONE HCL IR 5 MG TAB (IMMEDIATE RELEASE) PO PRN (14:54)
[2022-03-08] MEDS ORDERED: POLYETHYLENE (MIRALAX) 17 GM PACK PO PRN (14:54)
[2022-03-08] MEDS ORDERED: CARBOHYDRATES FOR HYPOGLYCEMIA PO PRN (14:54)
[2022-03-08] MEDS ORDERED: ACETAMINOPHEN 325 MG TAB PO PRN (14:54)
[2022-03-08] MEDS ORDERED: ONDANSETRON INJ 2 MG/ML 2 ML VIAL IV PRN (14:54)
[2022-03-08] MEDS ORDERED: PIPERACILLIN/TAZOBACTAM 4.5 GM in DEXTROSE 5% 100 ML IV ONE (15:30)
--- NOTE | 2022-03-08 15:45 | Electrocardiogram Report ---
Test Reason : Blood Pressure : / mmHG Vent. Rate : 068 BPM Atrial Rate : 068 BPM P-R Int : 150 ms QRS Dur : 090 ms QT Int : 414 ms P-R-T Axes : -18 -17 -10 degrees QTc Int : 440 ms Poor data quality, interpretation may be adversely affected Normal sinus rhythm Nonspecific T wave abnormality Abnormal ECG When compared with ECG of 07-MAR-2022 16:55, Vent. rate has decreased BY 47 BPM Confirmed by Gurwinder Guadalupe ([id number]) on 03/08/2022 3:45:00 PM Referred By: REFERRED SELF Confirmed By:Francisco Guadalupe
[2022-03-08] MEDS: INSULIN ASPART PER UNIT SC SCH ×2 (17:24→20:45)
[2022-03-08 18:13] LABS: Appearance Urine Clear (Clear); Bacteria Urine Automated Negative (Negative); Bilirubin Urine Negative (Negative); Blood Urine Negative (Negative); Cast Urine Automated 0 /lpf (0-5); Color Urine Yellow; Epithelial Cell Urine Auto 0-5 /lpf (0-5); Glucose Urine UA Negative (Negative); Ketones Urine Negative (Negative); Leukocyte Esterase Urine Negative (Negative); Nitrite Urine Negative (Negative); Protein Urine Trace (Negative); RBC Urine Automated 0-4 /hpf (0-4); Specific Gravity Urine 1.022 (1.000-1.030); Urobilinogen Urine Negative (Negative); pH Urine 5.5 (4.5-7.5)
[2022-03-08] MEDS: PIPERACILLIN/TAZOBACTAM 4.5 GM in DEXTROSE 5% 100 ML IV SCH (20:39)
[2022-03-08] MEDS: ATORVASTATIN 20 MG TAB PO SCH (20:44)
[2022-03-08] MEDS: GABAPENTIN 300 MG CAP PO SCH (20:45)
[2022-03-08] MEDS: ENOXAPARIN INJ 40 MG/0.4 ML SYR SQ SCH (20:46)
[2022-03-09 01:18] LABS: A calco-baum cmplx NotReported Not Detected (NotDetected); Bact fragilis Not Reported Not Detected (NotDetected); C auris Not Reported Not Detected (NotDetected); CTX-M Resistant Gene Not Detected (NotDetected); Calbicans Not Reported Not Detected (NotDetected); Candida glabrata Not Reported Not Detected (NotDetected); Candida krusei Not Reported Not Detected (NotDetected); Cneoformans/gatti Not Reported Not Detected (NotDetected); Cparapsilosis Not Reported Not Detected (NotDetected); Ctropicalis Not Reported Not Detected (NotDetected); E cloacae compx Not Reported Not Detected (NotDetected); Efaecalis Not Reported Not Detected (NotDetected); Efaecium Not Reported Not Detected (NotDetected); Enterobacterales DETECTED (NotDetected); Enterobacterales Not Reported DETECTED (NotDetected); Escherichia coli Not Reported Not Detected (NotDetected); H influenzae Not Reported Not Detected (NotDetected); IMP Resistant Gene Not Detected (NotDetected); K aerogenes Not Reported Not Detected (NotDetected); KPC Resistant Gene Not Detected (NotDetected); Koxytoca Not Reported DETECTED (NotDetected); Kpneumoniae grp Not Reported Not Detected (NotDetected); Lmonocyt Not Reported Not Detected (NotDetected); N meningitidis Not Reported Not Detected (NotDetected); NDM Resistant Gene Not Detected (NotDetected); OXA 48 Like Resistant Gene Not Detected (NotDetected); P aeruginosa Not Reported Not Detected (NotDetected); Proteus spp Not Reported Not Detected (NotDetected); Salmonella spp Not Reported Not Detected (NotDetected); Smarcescens Not Reported Not Detected (NotDetected); Staph lugdunensis Not Reported Not Detected (NotDetected); Staph spp. Not Reported Not Detected (NotDetected); Staphaureus Not Reported Not Detected (NotDetected); Staphepi Not Reported Not Detected (NotDetected); Stenmaltophilia Not Reported Not Detected (NotDetected); Strep agal(GrpB) Not Reported Not Detected (NotDetected); Strep pneum Not Reported Not Detected (NotDetected); Strep pyog (GrpA) Not Reported Not Detected (NotDetected); Strep spp Not Reported Not Detected (NotDetected); VIM Resistant Gene Not Detected (NotDetected); mcr-1 Colistin Resistant Gene Not Detected (NotDetected)
[2022-03-09] MEDS ORDERED: HEPARIN 100 UNIT/ML 5ML FLUSH FLUSH PRN (03:07)
[2022-03-09] MEDS: PIPERACILLIN/TAZOBACTAM 4.5 GM in DEXTROSE 5% 100 ML IV SCH ×3 (03:41→20:23)
[2022-03-09 05:53] LABS: Basophils # (auto) 0.03 K/uL (0-0.2); Basophils % (auto) 0.5 %; Eosinophils # (auto) 0.02 K/uL (0-0.50); Eosinophils % (auto) 0.3 %; Hematocrit (blood only) 31.7 % (40.1-51.0); Hemoglobin 10.8 g/dl (14.0-18.0); Immature Granulocytes # (auto) 0.02 K/uL (0.00-0.02); Immature Granulocytes % (auto) 0.3 %; Lymphocytes # (auto) 0.82 K/uL (1.2-3.4); Lymphocytes % (auto) 13.4 %; Mean Corpuscular Hemoglobin 32.8 pg (25.0-34.0); Mean Corpuscular Hgb Conc 34.1 g/dL (32.0-36.0); Mean Corpuscular Volume 96.4 fL (80.0-100.0); Mean Platelet Volume 9.6 fL (9.4-12.4); Monocytes % (auto) 14.8 %; Neutrophils # (auto) 4.31 K/uL (1.4-6.5); Neutrophils % (auto) 70.7 %; Platelet Count 166 K/uL (130-400); RDW Coefficient of Variation 12.8 % (11.5-14.5); RDW Standard Deviation 45.6 fL (36.4-46.3); Red Blood Count 3.29 M/uL (4.63-6.08)
[2022-03-09 06:17] LABS: Albumin Globulin Ratio 1.3 (0.9-2); Albumin Level 3.2 gm/dl (3.4-5.0); BUN Creatinine Ratio 16.7 (10-20); Bilirubin,Total 0.8 mg/dl (0.2-1.0); Calcium 8.1 mg/dl (8.5-10.1); Creatinine Clr Calc Pharmacy 82.6 ml/min; Est GFR (African American) 99.2 ml/min; Est GFR (Non-African American) 85.6 ml/min; Globulin 2.5 gm/dl (2.5-4.0); Magnesium 1.7 mg/dl (1.7-2.4); Potassium 3.7 mmol/L (3.5-5.1); Total Protein 5.7 gm/dl (6.0-8.3)
[2022-03-09 06:58] LABS: Estimated Average Glucose 123 mg/dl; Hemoglobin A1C 5.9 % (4.5-5.6)
[2022-03-09] MEDS: INSULIN ASPART PER UNIT SC SCH ×4 (07:57→20:31)
[2022-03-09] MEDS: MULTIVITAMIN TAB PO SCH (08:07)
[2022-03-09] MEDS: GABAPENTIN 300 MG CAP PO SCH ×2 (08:07→20:27)
[2022-03-09] MEDS: ASPIRIN 81 MG ECTAB PO SCH (08:07)
[2022-03-09] MEDS: CHOLECALCIFEROL 1,000 UNITS 25 MCG TAB PO SCH (08:08)
[2022-03-09] MEDS: lisinopril 20 MG TAB PO SCH ×2 (08:08→20:29)
--- NOTE | 2022-03-09 10:31 | Gastrointestinal Consultation ---
Date of Consultation March 09, 2022 Assessment & Plan (1) Bacteremia: (2) Cholangiocarcinoma: Plan Tx bacteremia. Agree w Zosyn. No plan for further GI procedures at this time. May have a regular consistency diet. GI will watch peripherally. Supervising Physician Co-Signing Physician Notes Late entry: Patient was seen and examined with 03/09 with LAKSHMI Cabezas whose note reflects our findings and plan. History of Present Illness Reason for Consultation: Recent CBD stent placement, bacteremia Requesting Physician: Carmita Lira PA-C Attending Physician: Felipe Cole MD History of Present Illness Mr. Felipe Osborn is a 71 yr old male pt of Dr. Carias w a hx of HTN, KENTON on CPAP, DM-2 who was dx'ed w cholangiocarcinoma in 2018, S/P radiation, most recent chemo in 2020. Plans to start gemcitabine and carboplatin soon. Chemotherapy is managed by Dr. Crystal. He was noted to be jaundiced w significantly high LFTs on 02/14 and underwent ERCP with sphincterotomy and placement on covered metal stent on 02/17. He presented to the ED on 03/07 for fever. Blood cx were obtained and when they were found to be positive of Klebsiella and enterbacterales, he was recalled back and admitted for IV antibiotics. His LFTs have been normal and CT on 03/07 suggested appropriate CBD stent position. He is awake, alert, oriented, reports intermittent/brief sharp pains in the right mid abd since stent placement but no ongoing abdominal pain. No jaundice. Allergies Allergy/AdvReac Type Severity Reaction Status Date / Time No Known Allergies Allergy Verified 03/07/22 19:46 Home Medications Medication Instructions Recorded Confirmed Type atorvastatin 20 mg tablet 20 mg PO HS 11/26/18 03/08/22 History cholecalciferol (vitamin D3) 25 1,000 unit PO DAILY 11/26/18 03/08/22 History mcg (1,000 unit) capsule (Vitamin D3) lisinopril 20 mg tablet 20 mg PO BID 11/26/18 03/08/22 History metformin 1,000 mg tablet 1,000 mg PO BID 11/04/19 03/08/22 History doxycycline hyclate 100 mg capsule 200 mg PO DAILY PRN tick bite 04/21/20 03/08/22 History oxycodone 5 mg tablet 5 mg PO Q4H PRN Pain 10/21/20 03/08/22 History gabapentin 300 mg capsule 300 mg PO AMHS 10/26/21 03/08/22 History aspirin 81 mg tablet,delayed 81 mg PO DAILY 03/08/22 03/08/22 History release multivitamin 1 tab PO DAILY 03/08/22 03/08/22 History Patient History Medical History (Updated 03/11/22 @ 07:08 by Sim Mcintyre MD) Acute calculous cholecystitis 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 HTN (hypertension) Hx of basal cell carcinoma left cheek-appx 2014 [facility] surgery done [facility] Kidney stones KENTON on CPAP Port-A-Cath in place Septic olecranon bursitis of right elbow (09/04/14) T2DM (type 2 diabetes mellitus) Surgical History (Updated 03/11/22 @ 08:41 by Pao Matias RN) H/O repair of right rotator cuff 2016 H/O wisdom tooth extraction History of cholecystectomy 11/27/18 History of exploratory laparotomy intention was for liver resection but Surgeon found 2 cancerous spots on stomach one on omentum. History of removal of Port-a-Cath (03/11/22) Infusaport Removal, Left(Left) - Helder Crowder MD, FACS S/P right knee arthroscopy 2018 Family History Father , MRSA infection age 3 No problems noted. Mother , ovarian cancer age 80 parvin Ovarian cancer Daughter No problems noted. Daughter No problems noted. 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 Beliefs That Will Affect Care: None marital status: Current Living Situation: Spouse current occupational status: retired Feels Safe at Home: Yes Safety Concerns: Feels Safe At This Time Childhood Exposure to Second-Hand Smoke: No Assistive Devices: CPAP Review of Systems Review of Systems: ROS: Gen: + weakness/malaise/fevers Eyes: No eye redness, or pain, no recent vision changes Resp: No SOB, no cough Cardio: No palpitations/irregular beats, no chest pain GI: As per HPI, otherwise normal : Denies pain on urination Skin: No jaundice, itching or new rashes Physical Exam Constitutional: WD/WN, vitals as above Eyes: PERRL, conjunctivae normal, anicteric sclerae Neck: trachea midline, no thyromegaly Respiratory: normal respiratory effort, lungs clear to auscultation Cardiovascular: RRR, no murmur, no edema Gastrointestinal (Abdomen): normal bowel sounds, soft, nontender, no hepatosplenomegaly Skin: no rashes, warm and dry no jaundice Neurologic: PERRL, EOMI, accommodation nl, no face palsy, no dysarthria Psychiatric: A+Ox3, euthymic affect Lymphatic: no cervical or axillary lymphadenopathy Results & Data ([facility]) Vital Signs (Past 12 Hours) Vital Signs Temp Pulse Pulse Resp BP Pulse Ox O2 Del Method 03/09/22 09:46 66 03/09/22 08:00 37.3 C 68 20 118/76 96 Room Air 03/09/22 03:26 38.0 C H 74 18 106/64 93 Room Air 03/08/22 22:50 86 03/08/22 22:39 37.2 C 96 H 20 117/66 93 Room Air Laboratory Results T Bili 0.8, AST 34, ALT 41, ALk PHos 141, WBC 6, Hb 10, Hct 31, Plts 166, Na 136, K 3.7, Cl 103, CO2 26, BUN 15, Cr 0.9. Diagnostic Findings CTAP 03/07: 1. Satisfactory positioning of the common bile duct stent. Left hepatic lobe predominant intrahepatic with associated extrahepatic biliary ductal dilation redemonstrated along with an ill-defined central hepatic mass resulting in chronic appearing occlusion of the left portal vein. 2. Upper abdominal omental/peritoneal nodules suggestive of metastasis. 3. No bowel obstruction or bowel wall thickening. 4. Prostamegaly with findings suggestive of chronic bladder outlet obstruction. Correlate with urinalysis to exclude cystitis. 5. Nonobstructing left nephrolithiasis with urinary bladder calculi. 6. Additional findings as above.
--- NOTE | 2022-03-09 10:55 | Electrocardiogram Report ---
Test Reason : Blood Pressure : / mmHG Vent. Rate : 075 BPM Atrial Rate : 075 BPM P-R Int : 138 ms QRS Dur : 090 ms QT Int : 414 ms P-R-T Axes : 074 -20 058 degrees QTc Int : 462 ms Normal sinus rhythm Possible Left atrial enlargement Borderline ECG When compared with ECG of 08-MAR-2022 12:19, Nonspecific T wave abnormality, improved in Anterolateral leads Confirmed by Gurwinder Guadalupe ([id number]) on 03/09/2022 10:54:31 AM Referred By: REFERRED SELF Confirmed By:Francisco Guadalupe
--- NOTE | 2022-03-09 15:21 | Hospitalist Progress Note ---
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 Patient presented to ER on 03/07/2022 secondary to fever that started the same day. He underwent full work-up including blood cultures. Blood cultures were even drawn from his port. He underwent CT abdomen pelvis which showed satisfactory positioning of the CBD stent. 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 Also noted was upper abdominal omental and peritoneal nodules suggestive of metastasis.his blood cultures returned positive for Enterobacter and Klebsiella oxytoca. He was referred back to the ER. Patient presented today with known positive blood cultures. He has been signs are stable and his WBC count was WNL. He did have a mild lactic acidosis which resolved after receiving IV fluid. His procalcitonin also increased from 1.72-4.37. He received IV cefepime in ED. Sepsis Bacteremia -Klebsiella and Enterobacter Admit to PCU Patient urinalysis negative. Chest x-ray negative. CT abdomen pelvis shows CBD stent with findings as above. No acute infectious intra-abdominal pathology pt does report recent dental work ~ 1 week ago as well in which he completed antibiotics for with amoxicillin CBD stent placed 02/25 and post op antibiotics completed - Started empiric IV Zosyn - will continue for now pending susceptibilities - TTE ordered -Repeat blood cultures drawn today 03/09/2022 after 24 hours of abx therapy - Consult gastroenterology as a stent possible etiology of bacteremia - no intervention from GI standpoint - Consult infectious disease as well - will discuss over the phone this evening 03/09/2022 - May eventually need general surgery consultation regarding Port-A-Cath site if this is the source - pending discussion with ID, oncologist made aware of potential for port removal Lactic acidosis Resolved with IV fluid resuscitation - 2L Elevated troponin No chest pain or EKG changes Initial troponin 93.8, repeat in 2 hours 79.5 Likely type II NSTEMI in setting of sepsis Cycle troponins for completeness Obtain echo Metastatic cholangiocarcinoma Diagnosed in November 2018 Status postcholecystectomy Follows [facility] He received 2 rounds of chemotherapy thus far as well as 1 round of radiation Recently had a CBD stent placed on 02/25 secondary to elevated LFTs This is much improved as AST and ALT are normal and direct bili improved from 0.8-0.3 Mild abdominal pain T2DM Well-controlled, hold metformin NovoLog per protocol HTN Blood pressure normal Resume lisinopril tomorrow with parameters K[place]ON on CPAP CPAP at bedtime DVT ppx: SQ Lovenox Diet: Carb Controlled PCP: Jv FULL CODE Dispo PCU Felipe Cole MD Hospital Medicine Admission and Anticipated Discharge Date Admission Date: March 08, 2022 Subjective The patient is a 71 year old man with pmh metastatic cholangiocarcinoma, DM2, HTN, HLD, [place] on CPAP, GERD, chemo related neuropathy who presented for fever since 03/07/2022. Found to have Enterobacter and klebsiella bacteremia, started on Zosyn. ID consulted for source control as patient has port for chemo. Improving on abx, repeat blood cultures sent. GI consulted for recent CBD stent, no further recommendations or GI interventions. Patient denies any complaints except some mild RUQ abdominal pain since his jonathon nt placement, but has improved. He denies further fevers or chills, n/v/d, chest pain, shortness of breath, dsyuria. Review of Systems Review of Systems: All systems reviewed & are unremarkable except as noted in Subjective Physical Exam Physical Exam: NAD, well developed HEENT: normal oral exam, no gum erythema or swelling Lungs: Port on the Left chest wall, CTA, no wheezing or crackles Abd: RUQ scar in place with small reducible hernia, ND, NT, soft and normal BS MSK: No LE edema Psych: AAOx3, normal affect Results & Data Results & Data ([facility]) Vital Signs (Past 12 Hours) Vital Signs Temp Pulse Pulse Resp BP Pulse Ox O2 Del Method 03/09/22 11:28 37.4 C 124 H 18 127/68 95 Room Air 03/09/22 10:56 Room Air 03/09/22 09:46 66 03/09/22 08:00 37.3 C 68 20 118/76 96 Room Air 03/09/22 03:26 38.0 C H 74 18 106/64 93 Room Air Laboratory Results Short CBC 03/09/22 Range/Units 05:35 WBC 6.10 (4.8-10.8) K/ul Hgb 10.8 L (14.0-18.0) g/dl Hct 31.7 L (40.1-51.0) % Plt Count 166 (130-400) K/uL BMP 03/09/22 05:35 Sodium 136 Potassium 3.7 Chloride 103 Carbon Dioxide 26 BUN 15 Creatinine 0.90 Glucose 126 H Calcium 8.1 L Liver Function 03/09/22 Range/Units 05:35 Total Bilirubin 0.8 (0.2-1.0) mg/dl AST 34 (13-39) U/L ALT 41 (7-52) U/L Alkaline Phosphatase 141 H (34-104) U/L Albumin 3.2 L (3.4-5.0) gm/dl Urine 03/08/22 Range/Units 17:35 Urine Color Yellow Urine Appearance Clear (Clear) Urine pH 5.5 (4.5-7.5) Ur Specific [place] 1.022 (1.000-1.030) Urine Protein Trace H (Negative) Urine Glucose (UA) Negative (Negative) Medications Administered Current Inpatient Medications Acetaminophen (Acetaminophen 325 Mg Tab) 650 mg PO Q4H PRN PRN Reason: Pain or Fever Stop: 04/07/22 14:53 Last Admin: 03/08/22 20:35 Dose: 650 mg Al Hydrox/Mg Hydrox/Simethicone (Aluminum/Magnesium Susp 30 Ml Udc) 15 ml PO Q4H PRN PRN Reason: Dyspepsia Stop: 04/07/22 14:53 Aspirin (Aspirin 81 Mg Ectab) 81 mg PO DAILY [place] Stop: 04/08/22 08:59 Last Admin: 03/09/22 08:07 Dose: 81 mg Atorvastatin Calcium (Atorvastatin 20 Mg Tab) 20 mg PO HS [place] Stop: 04/07/22 20:59 Last Admin: 03/08/22 20:44 Dose: 20 mg Dextrose (Dextrose 50% 50 Ml Syringe) 25 - 50 ml IV UD PRN; Protocol PRN Reason: Hypoglycemia Protocol Stop: 04/07/22 14:53 Enoxaparin Sodium (Enoxaparin Inj 40 Mg/0.4 Ml Syr) 40 mg SQ Q24H [place] Stop: 04/07/22 21:59 Last Admin: 03/08/22 20:46 Dose: 40 mg Gabapentin (Gabapentin 300 Mg Cap) 300 mg PO AMHS [place] Stop: 04/07/22 20:59 Last Admin: 03/09/22 08:07 Dose: 300 mg Glucagon (Glucagon For Inj 1 Mg Vial) 1 mg SQ UD PRN; Protocol PRN Reason: Hypoglycemia Protocol Stop: 04/07/22 14:53 Glucose (Glucose 40% Gel 15 Gm Tube) 15 - 30 gm PO UD PRN; Protocol PRN Reason: Hypoglycemia Protocol Stop: 04/07/22 14:53 Glucose (Glucose 10 Tab/Tube) 4 - 8 tab PO UD PRN; Protocol PRN Reason: Hypoglycemia Treatment Stop: 04/07/22 14:53 Heparin Sodium (Porcine) (Heparin 100 Unit/Ml 5ml Flush) 5 ml FLUSH PRN PRN PRN Reason: Flush Stop: 04/08/22 03:06 Last Admin: 03/09/22 08:08 Dose: 5 ml Piperacillin Sod/Tazobactam (Sod 4.5 gm/ Dextrose) 120 mls @ 30 mls/hr IV Q8H [facility]; Protocol Stop: 03/18/22 19:59 Last Admin: 03/09/22 13:04 Dose: 30 mls/hr Insulin Aspart (Insulin Aspart Per Unit) 0 units SC [facility] Stop: 04/07/22 16:29 Last Admin: 03/09/22 12:21 Dose: Not Given Lisinopril (Lisinopril 20 Mg Tab) 20 mg PO BID [facility] Stop: 04/08/22 08:59 Last Admin: 03/09/22 08:08 Dose: 20 mg Magnesium Hydroxide (Magnesium Hydroxide Susp 30 Ml Udc) 30 ml PO Q12H PRN PRN Reason: Constipation Stop: 04/07/22 14:53 Miscellaneous (Carbohydrates For Hypoglycemia ) 15 - 30 gm PO UD PRN PRN Reason: Hypoglycemia Protocol Stop: 04/07/22 14:53 Multivitamins (Multivitamin Tab) 1 tab PO DAILY [facility] Stop: 04/08/22 08:59 Last Admin: 03/09/22 08:07 Dose: 1 tab Ondansetron HCl (Ondansetron Inj 2 Mg/Ml 2 Ml Vial) 4 mg IV Q6H PRN PRN Reason: Nausea Stop: 04/07/22 14:53 Oxycodone HCl (Oxycodone Hcl Ir 5 Mg Tab (Immediate Release)) 5 mg PO Q4H PRN PRN Reason: Pain Stop: 03/22/22 14:53 Polyethylene Glycol (Polyethylene (Miralax) 17 Gm Pack) 17 gm PO DAILY PRN PRN Reason: Constipation Stop: 04/07/22 14:53 Vitamin D (Cholecalciferol 1,000 Units 25 Mcg Tab) 1,000 units PO DAILY [place] Stop: 04/08/22 08:59 Last Admin: 03/09/22 08:08 Dose: 1,000 units (1) Sepsis Sepsis acute organ dysfunction status: without acute organ dysfunction Sepsis type: sepsis due to unspecified organism Qualified Code(s): A41.9 - Sepsis, unspecified organism
[2022-03-09] MEDS: ATORVASTATIN 20 MG TAB PO SCH (20:27)
[2022-03-09] MEDS: ENOXAPARIN INJ 40 MG/0.4 ML SYR SQ SCH (20:30)
[2022-03-10] MEDS: PIPERACILLIN/TAZOBACTAM 4.5 GM in DEXTROSE 5% 100 ML IV SCH ×3 (03:57→20:55)
[2022-03-10] MEDS: INSULIN ASPART PER UNIT SC SCH ×4 (07:09→21:07)
--- NOTE | 2022-03-10 08:07 | Hospitalist Progress Note ---
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 Patient presented to ER on 03/07/2022 secondary to fever that started the same day. He underwent full work-up including blood cultures. Blood cultures were even drawn from his port. He underwent CT abdomen pelvis which showed satisfactory positioning of the CBD stent. 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 Also noted was upper abdominal omental and peritoneal nodules suggestive of metastasis.his blood cultures returned positive for Enterobacter and Klebsiella oxytoca. He was referred back to the ER. Patient presented today with known positive blood cultures. He has been signs are stable and his WBC count was WNL. He did have a mild lactic acidosis which resolved after receiving IV fluid. His procalcitonin also increased from 1.72-4.37. He received IV cefepime in ED. Sepsis Bacteremia -Klebsiella and Enterobacter Admit to PCU Patient urinalysis negative. Chest x-ray negative. CT abdomen pelvis shows CBD stent with findings as above. No acute infectious intra-abdominal pathology pt does report recent dental work ~ 1 week ago as well in which he completed antibiotics for with amoxicillin CBD stent placed 02/25 and post op antibiotics completed - Started empiric IV Zosyn - will continue for now pending susceptibilities - TTE ordered -Repeat blood cultures drawn today 03/09/2022 after 24 hours of abx therapy - Consult gastroenterology as a stent possible etiology of bacteremia - no intervention from GI standpoint - Consult infectious disease as well - will discuss with ID when able to reach - May eventually need general surgery consultation regarding Port-A-Cath site if this is the source - pending discussion with ID, oncologist made aware of potential for port removal - follow repeat cultures 03/09/2022 to determine if cleared to determine need to remove port - repeat again today 03/10/2022 after 24 hours of treatment Metastatic cholangiocarcinoma Diagnosed in November 2018 Status postcholecystectomy Follows [facility] He received 2 rounds of chemotherapy thus far as well as 1 round of radiation Recently had a CBD stent placed on 02/25 secondary to elevated LFTs This is much improved as AST and ALT are normal and direct bili improved from 0.8-0.3 Mild abdominal pain T2DM Well-controlled, hold metformin NovoLog per protocol HTN Blood pressure normal Resume lisinopril tomorrow with parameters [place] on CPAP CPAP at bedtime DVT ppx: SQ Lovenox Diet: Carb Controlled PCP: Jv FULL CODE Dispo PCU Felipe Cole MD [facility] Medicine Admission and Anticipated Discharge Date Admission Date: March 08, 2022 Subjective The patient is a 71 year old man with pmh metastatic cholangiocarcinoma, DM2, HTN, HLD, [place] on CPAP, GERD, chemo related neuropathy who presented for fever since 03/07/2022. Found to have Enterobacter and klebsiella bacteremia, started on Zosyn. ID consulted for source control as patient has port for chemo. Improving on abx, repeat blood cultures sent. GI consulted for recent CBD stent, no further recommendations or GI interventions. Patient denies any complaints. He denies further fevers or chills, n/v/d, chest pain, shortness of breath, dsyuria. Review of Systems Review of Systems: All systems reviewed & are unremarkable except as noted in Subjective Physical Exam Physical Exam: NAD, well developed HEENT: normal oral exam, no gum erythema or swelling Lungs: Port on the Left chest wall, CTA, no wheezing or crackles Abd: RUQ scar in place with small reducible hernia, ND, NT, soft and normal BS MSK: No LE edema Psych: AAOx3, normal affect Results & Data Results & Data ([facility]) Vital Signs (Past 12 Hours) Vital Signs Temp Pulse Pulse Resp BP Pulse Ox O2 Del Method 03/10/22 03:31 36.8 C 68 17 101/56 L 93 Room Air 03/10/22 00:18 84 03/09/22 22:48 37.1 C 79 18 100/55 L 96 Room Air Medications Administered Current Inpatient Medications Acetaminophen (Acetaminophen 325 Mg Tab) 650 mg PO Q4H PRN PRN Reason: Pain or Fever Stop: 04/07/22 14:53 Last Admin: 03/08/22 20:35 Dose: 650 mg Al Hydrox/Mg Hydrox/Simethicone (Aluminum/Magnesium Susp 30 Ml Udc) 15 ml PO Q4H PRN PRN Reason: Dyspepsia Stop: 04/07/22 14:53 Aspirin (Aspirin 81 Mg Ectab) 81 mg PO DAILY [place] Stop: 04/08/22 08:59 Last Admin: 03/09/22 08:07 Dose: 81 mg Atorvastatin Calcium (Atorvastatin 20 Mg Tab) 20 mg PO HS [place] Stop: 04/07/22 20:59 Last Admin: 03/09/22 20:27 Dose: 20 mg Dextrose (Dextrose 50% 50 Ml Syringe) 25 - 50 ml IV UD PRN; Protocol PRN Reason: Hypoglycemia Protocol Stop: 04/07/22 14:53 Enoxaparin Sodium (Enoxaparin Inj 40 Mg/0.4 Ml Syr) 40 mg SQ Q24H [place] Stop: 04/07/22 21:59 Last Admin: 03/09/22 20:30 Dose: 40 mg Gabapentin (Gabapentin 300 Mg Cap) 300 mg PO AMHS [place] Stop: 04/07/22 20:59 Last Admin: 03/09/22 20:27 Dose: 300 mg Glucagon (Glucagon For Inj 1 Mg Vial) 1 mg SQ UD PRN; Protocol PRN Reason: Hypoglycemia Protocol Stop: 04/07/22 14:53 Glucose (Glucose 40% Gel 15 Gm Tube) 15 - 30 gm PO UD PRN; Protocol PRN Reason: Hypoglycemia Protocol Stop: 04/07/22 14:53 Glucose (Glucose 10 Tab/Tube) 4 - 8 tab PO UD PRN; Protocol PRN Reason: Hypoglycemia Treatment Stop: 04/07/22 14:53 Heparin Sodium (Porcine) (Heparin 100 Unit/Ml 5ml Flush) 5 ml FLUSH PRN PRN PRN Reason: Flush Stop: 04/08/22 03:06 Last Admin: 03/09/22 08:08 Dose: 5 ml Piperacillin Sod/Tazobactam (Sod 4.5 gm/ Dextrose) 120 mls @ 30 mls/hr IV Q8H [place]; Protocol Stop: 03/18/22 19:59 Last Admin: 03/10/22 03:57 Dose: 30 mls/hr Insulin Aspart (Insulin Aspart Per Unit) 0 units SC [facility] [place] Stop: 04/07/22 16:29 Last Admin: 03/10/22 07:09 Dose: Not Given Lisinopril (Lisinopril 20 Mg Tab) 20 mg PO BID [place] Stop: 04/08/22 08:59 Last Admin: 03/09/22 20:29 Dose: 20 mg Magnesium Hydroxide (Magnesium Hydroxide Susp 30 Ml Udc) 30 ml PO Q12H PRN PRN Reason: Constipation Stop: 04/07/22 14:53 Miscellaneous (Carbohydrates For Hypoglycemia ) 15 - 30 gm PO UD PRN PRN Reason: Hypoglycemia Protocol Stop: 04/07/22 14:53 Multivitamins (Multivitamin Tab) 1 tab PO DAILY [place] Stop: 04/08/22 08:59 Last Admin: 03/09/22 08:07 Dose: 1 tab Ondansetron HCl (Ondansetron Inj 2 Mg/Ml 2 Ml Vial) 4 mg IV Q6H PRN PRN Reason: Nausea Stop: 04/07/22 14:53 Oxycodone HCl (Oxycodone Hcl Ir 5 Mg Tab (Immediate Release)) 5 mg PO Q4H PRN PRN Reason: Pain Stop: 03/22/22 14:53 Polyethylene Glycol (Polyethylene (Miralax) 17 Gm Pack) 17 gm PO DAILY PRN PRN Reason: Constipation Stop: 04/07/22 14:53 Vitamin D (Cholecalciferol 1,000 Units 25 Mcg Tab) 1,000 units PO DAILY [facility] Stop: 04/08/22 08:59 Last Admin: 03/09/22 08:08 Dose: 1,000 units (1) Sepsis Sepsis acute organ dysfunction status: without acute organ dysfunction Sepsis type: sepsis due to unspecified organism Qualified Code(s): A41.9 - Sepsis, unspecified organism
[2022-03-10] MEDS: CHOLECALCIFEROL 1,000 UNITS 25 MCG TAB PO SCH (08:18)
[2022-03-10] MEDS: ASPIRIN 81 MG ECTAB PO SCH (08:18)
[2022-03-10] MEDS: lisinopril 20 MG TAB PO SCH ×2 (08:18→20:53)
[2022-03-10] MEDS: MULTIVITAMIN TAB PO SCH (08:18)
[2022-03-10] MEDS: GABAPENTIN 300 MG CAP PO SCH ×2 (08:18→20:54)
[2022-03-10] MEDS: ATORVASTATIN 20 MG TAB PO SCH (20:53)
[2022-03-10] MEDS: ENOXAPARIN INJ 40 MG/0.4 ML SYR SQ SCH (21:02)
[2022-03-11] MEDS: PIPERACILLIN/TAZOBACTAM 4.5 GM in DEXTROSE 5% 100 ML IV SCH (04:13)
--- NOTE | 2022-03-11 06:43 | History & Physical Report ---
Date of Service March 11, 2022 Assessment & Plan (1) Port-A-Cath in place: Plan: Patient with fever and positive blood cultures For access port removal Local sedation Admission and Anticipated Discharge Date Admission Date: March 08, 2022 History of Present Illness Primary Care Provider: Jose Carlos Carias MD 71-year-old male who was admitted to hospital with fever and positive blood cultures He has a history of metastatic cholangiocarcinoma and is undergoing chemotherapy and has an access port in left upper chest Discussion with infectious disease-it is felt it would be best for the port to be removed Allergies Allergy/AdvReac Type Severity Reaction Status Date / Time No Known Allergies Allergy Verified 03/07/22 19:46 Home Medications Medication Instructions Recorded Confirmed Type atorvastatin 20 mg tablet 20 mg PO HS 11/26/18 03/08/22 History cholecalciferol (vitamin D3) 25 1,000 unit PO DAILY 11/26/18 03/08/22 History mcg (1,000 unit) capsule (Vitamin D3) lisinopril 20 mg tablet 20 mg PO BID 11/26/18 03/08/22 History metformin 1,000 mg tablet 1,000 mg PO BID 11/04/19 03/08/22 History doxycycline hyclate 100 mg capsule 200 mg PO DAILY PRN tick bite 04/21/20 03/08/22 History oxycodone 5 mg tablet 5 mg PO Q4H PRN Pain 10/21/20 03/08/22 History gabapentin 300 mg capsule 300 mg PO AMHS 10/26/21 03/08/22 History aspirin 81 mg tablet,delayed 81 mg PO DAILY 03/08/22 03/08/22 History release multivitamin 1 tab PO DAILY 03/08/22 03/08/22 History Past Med/Surg History Medical History (Updated 03/08/22 @ 14:43 by Thomas Douglas MD) Acute calculous cholecystitis 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 HTN (hypertension) Hx of basal cell carcinoma left cheek-appx 2014 m[facility]s surgery done [facility] Kidney stones [place] on CPAP Port-A-Cath in place Septic olecranon bursitis of right elbow (09/04/14) T2DM (type 2 diabetes mellitus) Surgical History H/O repair of right rotator cuff 2016 H/O wisdom tooth extraction History of cholecystectomy 11/27/18 History of exploratory laparotomy intention was for liver resection but Surgeon found 2 cancerous spots on stomach one on omentum. S/P right knee arthroscopy 2018 Family History Father , MRSA infection age 3 No problems noted. Mother , ovarian cancer age 80 [place] Ovarian cancer Daughter No problems noted. Daughter No problems noted. Other Cancer Gallbladder disease Heart disease Hypertension Social History Smoking Status: Never smoker Second Hand Exposure: No; Hx Alcohol Use: Yes Alcohol type: beer, wine and hard liquor Hx Substance Use: No Preferred Language: Romansh Communication Ability: Effective Manager Client Required: No Beliefs That Will Affect Care: None marital status: Current Living Situation: Spouse current occupational status: retired Feels Safe at Home: Yes Safety Concerns: Feels Safe At This Time Childhood Exposure to Second-Hand Smoke: No Assistive Devices: CPAP Review of Systems All systems reviewed & are unremarkable except as noted in HPI & below Physical Exam Physical Exam: Patient with an access port in the left upper chest No erythema in this area Constitutional: no acute distress Eyes: + anicteric sclerae Respiratory: normal respiratory effort; no respiratory distress Cardiovascular: Rate/Rhythm: regular rate Gastrointestinal (Abdomen): Inspection/Auscultation: abdomen not distended Musculoskeletal: Head/Neck/Chest: head atraumatic Skin: no rashes, warm and dry Neurologic: awake Psychiatric: Orientation: alert Results & Data ([facility]) Vital Signs (Past 12 Hours) Vital Signs Temp Pulse Pulse Resp BP Pulse Ox O2 Del Method 03/11/22 04:16 36.8 C 76 18 100/65 92 Room Air 03/11/22 00:33 102 H 03/10/22 23:47 36.5 C 85 18 105/70 95 03/10/22 19:36 36.7 C 80 18 108/67 95 Code Status & VTE Plan VTE Prophylaxis Plan VTE Prophylaxis will be ordered: Yes
[2022-03-11] MEDS: INSULIN ASPART PER UNIT SC SCH ×2 (06:59→12:01)
[2022-03-11 07:04] LABS: Basophils # (auto) 0.05 K/uL (0-0.2); Basophils % (auto) 0.8 %; Eosinophils # (auto) 0.17 K/uL (0-0.50); Eosinophils % (auto) 2.9 %; Hematocrit (blood only) 33.4 % (40.1-51.0); Hemoglobin 11.4 g/dl (14.0-18.0); Immature Granulocytes # (auto) 0.02 K/uL (0.00-0.02); Immature Granulocytes % (auto) 0.3 %; Lymphocytes # (auto) 1.01 K/uL (1.2-3.4); Lymphocytes % (auto) 16.9 %; Mean Corpuscular Hemoglobin 32.6 pg (25.0-34.0); Mean Corpuscular Hgb Conc 34.1 g/dL (32.0-36.0); Mean Corpuscular Volume 95.4 fL (80.0-100.0); Mean Platelet Volume 9.3 fL (9.4-12.4); Monocytes # (auto) 0.76 K/uL (0.24-0.82); Monocytes % (auto) 12.8 %; Neutrophils # (auto) 3.95 K/uL (1.4-6.5); Neutrophils % (auto) 66.3 %; Platelet Count 224 K/uL (130-400); RDW Coefficient of Variation 12.7 % (11.5-14.5); RDW Standard Deviation 44.2 fL (36.4-46.3); White Blood Count 5.96 K/ul (4.8-10.8)
[2022-03-11] MEDS ORDERED: LIDOCAINE 1% LOCAL 20 ML VIAL ONE (07:06)
[2022-03-11] MEDS ORDERED: PROPOFOL IV EMULSION 10 MG/ML 20 ML VIAL IV ONE (07:08)
[2022-03-11] MEDS ORDERED: ATROPINE SULFATE 0.1 MG/ML 10ML SYR IV PRN ×2 (07:08→07:52)
[2022-03-11] MEDS ORDERED: fentaNYL citrate 100 MCG/2 ML VIAL IV PRN ×2 (07:08→07:52)
[2022-03-11] MEDS ORDERED: fentaNYL citrate 100 MCG/2 ML VIAL ONE (07:08)
[2022-03-11] MEDS ORDERED: ONDANSETRON INJ 2 MG/ML 2 ML VIAL IV PRN ×2 (07:08→07:52)
--- NOTE | 2022-03-11 07:08 | Anesthesiology Consultation ---
Date of Service March 11, 2022 Assessment & Plan (1) Encounter for pre-operative examination: Chart Review Chart Review: Acceptable Risk for Surgery History Surgery Operation Date: 03/11/22 07:00 Proposed Procedures p Infusaport Removal - Helder Crowder MD, FACS Height/Weight Height: 6 ft Weight: 76.6 kg Allergies Allergy/AdvReac Type Severity Reaction Status Date / Time No Known Allergies Allergy Verified 03/07/22 19:46 Medications Home Medications Medication Instructions Recorded Confirmed Last Taken atorvastatin 20 mg tablet 20 mg PO HS 11/26/18 03/08/22 03/06/22 cholecalciferol (vitamin D3) 25 1,000 unit PO DAILY 11/26/18 03/08/22 03/07/22 mcg (1,000 unit) capsule (Vitamin D3) lisinopril 20 mg tablet 20 mg PO BID 11/26/18 03/08/22 03/07/22 08:00 metformin 1,000 mg tablet 1,000 mg PO BID 11/04/19 03/08/22 03/07/22 08:00 doxycycline hyclate 100 mg capsule 200 mg PO DAILY PRN tick bite 04/21/20 03/08/22 Unknown oxycodone 5 mg tablet 5 mg PO Q4H PRN Pain 10/21/20 03/08/22 Unknown gabapentin 300 mg capsule 300 mg PO AMHS 10/26/21 03/08/22 03/07/22 08:00 aspirin 81 mg tablet,delayed 81 mg PO DAILY 03/08/22 03/08/22 Unknown release multivitamin 1 tab PO DAILY 03/08/22 03/08/22 Unknown Active Medications Generic Name Dose Route Start Last Admin Trade Name Darvinq PRN Reason Stop Dose Admin Acetaminophen 650 mg 03/08/22 14:54 03/08/22 20:35 Acetaminophen 325 Mg Tab PO 04/07/22 14:53 650 mg Q4H PRN Administration Pain or Fever Aspirin 81 mg 03/09/22 09:00 03/10/22 08:18 Aspirin 81 Mg Ectab PO 04/08/22 08:59 81 mg DAILY [place] Administration Atorvastatin Calcium 20 mg 03/08/22 21:00 03/10/22 20:53 Atorvastatin 20 Mg Tab PO 04/07/22 20:59 20 mg HS [place] Administration Enoxaparin Sodium 40 mg 03/08/22 22:00 03/10/22 21:02 Enoxaparin Inj 40 Mg/0.4 Ml Syr SQ 04/07/22 21:59 40 mg Q24H [place] Administration Gabapentin 300 mg 03/08/22 21:00 03/10/22 20:54 Gabapentin 300 Mg Cap PO 04/07/22 20:59 300 mg AMHS [place] Administration Heparin Sodium (Porcine) 5 ml 03/09/22 03:07 03/09/22 08:08 Heparin 100 Unit/Ml 5ml Flush FLUSH 04/08/22 03:06 5 ml PRN PRN Administration Flush Piperacillin Sod/Tazobactam 120 mls @ 30 mls/hr 03/08/22 20:00 03/11/22 04:13 Sod 4.5 gm/ Dextrose IV 03/18/22 19:59 30 mls/hr Q8H [place] Administration Protocol Insulin Aspart 0 units 03/08/22 16:30 03/11/22 06:59 Insulin Aspart Per Unit SC 04/07/22 16:29 Not Given ACHS [place] Lisinopril 20 mg 03/09/22 09:00 03/10/22 20:53 Lisinopril 20 Mg Tab PO 04/08/22 08:59 20 mg BID [place] Administration Multivitamins 1 tab 03/09/22 09:00 03/10/22 08:18 Multivitamin Tab PO 04/08/22 08:59 1 tab DAILY [place] Administration Vitamin D 1,000 units 03/09/22 09:00 03/10/22 08:18 Cholecalciferol 1,000 Units 25 Mcg Tab PO 04/08/22 08:59 1,000 units DAILY [place] Administration Past Medical History Medical History Acute calculous cholecystitis 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 HTN (hypertension) Hx of basal cell carcinoma left cheek-appx 2015 mohs surgery done [facility] Kidney stones KENT[place] on CPAP Port-A-Cath in place Septic olecranon bursitis of right elbow (09/04/14) T2DM (type 2 diabetes mellitus) Past Family History Family History Father , MRSA infection age 3 No problems noted. Mother , ovarian cancer age 80 parvin Ovarian cancer Daughter No problems noted. Daughter No problems noted. Other Cancer Gallbladder disease Heart disease Hypertension Past Surgical History Surgical History H/O repair of right rotator cuff 2016 H/O wisdom tooth extraction History of cholecystectomy 11/27/18 History of exploratory laparotomy intention was for liver resection but Surgeon found 2 cancerous spots on stomach one on omentum. S/P right knee arthroscopy 2017 Social History Smoking Status: Never smoker Hx Alcohol Use: Yes Alcohol type: beer, wine and hard liquor alcohol intake frequency: 3 or more drinks per day Hx Substance Use: No substance use type: does not use Physical Exam Vital Signs Last Vital Signs Temp 36.8 C 03/11/22 04:16 Pulse 76 03/11/22 04:16 Resp 18 03/11/22 04:16 BP 100/65 03/11/22 04:16 Pulse Ox 92 03/11/22 04:16 O2 Del Method 03/11/22 04:16 Testing Laboratory Results 03/11/22 06:33 Hemoglobin A1c 5.9 % (4.5-5.6) H 03/09/22 05:35 Urine Color Yellow 03/08/22 17:35 Urine Appearance Clear (Clear) 03/08/22 17:35 Urine pH 5.5 (4.5-7.5) 03/08/22 17:35 Ur Specific [place] 1.022 (1.000-1.030) 03/08/22 17:35 Urine Protein Trace (Negative) H 03/08/22 17:35 Urine Glucose (UA) Negative (Negative) 03/08/22 17:35 Urine Ketones Negative (Negative) 03/08/22 17:35 Urine Nitrite Negative (Negative) 03/08/22 17:35 Ur Leukocyte Esterase Negative (Negative) 03/08/22 17:35 Urine WBC (Auto) 1-5 /hpf (0-5) 03/08/22 17:35 Urine RBC (Auto) 0-4 /hpf (0-4) 03/08/22 17:35 U Hyaline Cast (Auto) 0 /lpf (0-5) 03/08/22 17:35 U Epithel Cells (Auto) 0-5 /lpf (0-5) 03/08/22 17:35 Urine Bacteria (Auto) Negative (Negative) 03/08/22 17:35 03/09/22 12:46 Aerobic Blood Culture - Preliminary Blood No growth in Aerobic bottle after 24 hours. Anaerobic Blood Culture - Preliminary No growth in Anaerobic bottle after 24 hours. 03/09/22 12:46 Aerobic Blood Culture - Preliminary Blood No growth in Aerobic bottle after 24 hours. Anaerobic Blood Culture - Preliminary No growth in Anaerobic bottle after 24 hours. 03/08/22 10:24 Aerobic Blood Culture - Final Blood Klebsiella oxytoca Anaerobic Blood Culture - Final Klebsiella oxytoca 03/08/22 10:12 Aerobic Blood Culture - Preliminary Blood No growth in Aerobic bottle after 48 hours. Anaerobic Blood Culture - Preliminary No growth in Anaerobic bottle after 48 hours. 03/10/22 21:05 POC Glucose 116 H Laboratory Tests 03/09/22 05:35 Potassium 3.7 Creatinine 0.90 Electrocardiogram Date: 03/09/22 Findings: + NSR @ (79) Echocardiogram Date: 03/10/22 EF: 60-65% LV Function: normal Valvular Disease: + no significant valvular disease
[2022-03-11] MEDS ORDERED: MIDAZOLAM HCL 1 MG/ML 2ML VIAL ONE (07:23)
[2022-03-11 07:29] LABS: BUN Creatinine Ratio 26.9 (10-20); Calcium 8.2 mg/dl (8.5-10.1); Creatinine Clr Calc Pharmacy 94.1 ml/min; Est GFR (African American) 105.3 ml/min; Est GFR (Non-African American) 90.8 ml/min; Magnesium 1.9 mg/dl (1.7-2.4); Phosphorus 3.1 mg/dl (2.5-4.9); Potassium 3.8 mmol/L (3.5-5.1)
[2022-03-11] MEDS ORDERED: ACETAMINOPHEN 1,000 MG/100 ML VIAL IV ONE (08:04)
--- NOTE | 2022-03-11 08:05 | Post Operative Brief Note ---
PG Immediate Post Op with CF Date of Surgery March 11, 2022 Pre & Post Diagnosis Operation Date: 03/11/22 07:00 Pre-Op Diagnosis: Infected A-port Post-Op Diagnosis: Infected A-port I identified the patient and participated in the time-out.: Yes Procedure Operation Date: 03/11/22 07:00 Actual Procedures p Infusaport Removal, Left(Left) - Helder Crowder MD, FACS Surgeon Helder Crowder MD, FACS Metal Filer Nurses Estimated Blood Loss 5 Findings Consistent with Post-Op Diagnosis Access port removed Specimens Specimen Description: 1. Left A-port catheter tip
[2022-03-11] MEDS: lisinopril 20 MG TAB PO SCH (09:21)
[2022-03-11] MEDS: CHOLECALCIFEROL 1,000 UNITS 25 MCG TAB PO SCH (09:21)
[2022-03-11] MEDS: MULTIVITAMIN TAB PO SCH (09:21)
[2022-03-11] MEDS: GABAPENTIN 300 MG CAP PO SCH (09:21)
[2022-03-11] MEDS: ASPIRIN 81 MG ECTAB PO SCH (09:21)
--- NOTE | 2022-03-11 09:52 | Operative Report (OR) ---
DATE OF OPERATION: 03/11/2022. NAME OF OPERATION: Port removal. PREOPERATIVE DIAGNOSES: Positive blood cultures/bacteremia. POSTOPERATIVE DIAGNOSES: Positive blood cultures/bacteremia with port in place. STAFF SURGEON: Helder Crowder MD. BEAM BUILDER HELPER: Nurses. ANESTHESIA: 1% plain lidocaine with sedation. DESCRIPTION OF PROCEDURE: The patient was brought in the operating room and placed on the operating table in supine position. His left upper chest was prepped and draped in the usual fashion. 1% plai n lidocaine was used to anesthetize skin and subcutaneous tissue through a previous scar. Scar was o pened. The catheter was removed. The tunnel oversewn using 2-0 chromic suture. The tip of the cath eter was sent for culture. The port was then removed from the pocket. There was no purulence or rubén thema. The deep tissue was reapproximated using 2-0 plain suture, then the skin reapproximated using 4-0 nylon suture. Dressing applied. The patient was transferred to recovery room in stable conditi on. Job ID: [id number]
[2022-03-11] MEDS ORDERED: CIPROFLOXACIN 500 MG TAB PO SCH (10:00)
[2022-03-11 11:04] VITALS: TEMP 98.1; O2SAT 95
--- NOTE | 2022-03-11 11:30 | Anesthesiology Progress Note ---
Date of Service March 11, 2022 Anesthesia Post Procedure Vital Signs Vital Signs: Temp Pulse Pulse Pulse Resp BP BP 03/11/22 11:03 36.7 C 78 16 100/60 03/11/22 09:52 37.1 C 72 14 106/67 03/11/22 09:17 36.7 C 79 16 109/65 03/11/22 09:00 36.5 C 72 14 104/65 03/11/22 08:33 73 03/11/22 08:25 67 13 89/57 L 03/11/22 08:35 36.9 C 68 14 96/57 L 03/11/22 08:15 75 12 86/54 L 03/11/22 08:08 36.9 C 73 12 90/48 L 03/11/22 07:32 37.1 C 83 18 121/64 03/11/22 04:16 36.8 C 76 18 100/65 03/11/22 00:33 102 H 03/10/22 23:47 36.5 C 85 18 105/70 03/10/22 19:36 36.7 C 80 18 108/67 03/10/22 16:03 80 03/10/22 14:59 37.3 C 76 18 114/72 Pulse Ox O2 Del Method O2 Flow Rate 03/11/22 11:03 95 Room Air 03/11/22 09:52 97 Room Air 03/11/22 09:17 95 Room Air 03/11/22 09:00 97 Room Air 03/11/22 08:33 03/11/22 08:25 97 Oxymask 2 03/11/22 08:35 96 Nasal Cannula 2 03/11/22 08:15 96 Oxymask 3 03/11/22 08:08 93 Oxymask 5 03/11/22 07:32 93 Room Air 03/11/22 04:16 92 Room Air 03/11/22 00:33 03/10/22 23:47 95 03/10/22 19:36 95 03/10/22 16:03 03/10/22 14:59 96 Room Air Transfer of Care Handoff Completed per policy Notes Mental Status: alert / awake / arousable Patient Amnestic to Procedure: Yes Nausea / Vomiting: adequately controlled Pain: adequately controlled Airway Patency, RR, SpO2: stable & adequate BP & HR: stable & adequate Hydration State: stable & adequate Anesthetic Complications: no major complications apparent
[2022-03-11 14:41] VITALS: BP 106/67; PULSE 72
--- NOTE | 2022-03-11 15:27 | Discharge Summary ---
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 Patient follows [facility] oncology. He was initially diagnosed in November 2018 postcholecystectomy with metastatic cholangiocarcinoma. So far he has had 2 rounds of chemotherapy as well as 1 round of radiation. His last chemotherapy was at the end of February 2021. He does have a port placed in his left anterior chest wall. This was placed by Dr. Live approximately 1-1/2 years ago. Of significance patient underwent stenting in CBD 02/24/22 secondary to elevated LFTs. Tx with course of antibiotics x 7 days. Also had tooth extraction in August and a post and bone graft material a few days after stent was placed. He completed antibiotics on Monday, 1 day ago. He was feeling well until the past 1 to 2 days. Yesterday he complained of fever of 101.5 and chills. He came to ER and underwent full work up. He was given tylenol and fluids and fever reduced. Given no specific findings pt wanted to be d/c to home. Unfortunately his blood cultures tested positive for Klebsiella and Enterobacter and therefore he was directed to return back to ED. Since stent he has had abdominal pain that comes and goes, located RUQ, under rib cage. Pain has improved since stent placement. He is using oxycodone as needed for pain. Nothing makes pain worse. He denies diarrhea, nausea, vomiting, dysuria, increased urg/freq, melena, hematochezia, sweats, chest pain, shortness of breath, palpitations, cough, hemoptysis, URI symptoms. Feels his stamina isn't what it use to be but is still active outside doing yard work. Past two days hasn't had energy like normal. Overall good appetite. Last BM was 2 days ago. No recent rash or tick bites that he is aware of. In ED patient remained hemodynamically stable. Lab work consistent with H&H 11.7 and 34.5, sodium 134, BUN 24, glucose 108, troponin 97, lactic acid 2.6, direct bilirubin 0.3. Procalcitonin went from 1.72 to 4.37. He was initiated on IV cefepime. He was started on 2 L of IV fluid. Admission Exam Per Admitting Provider NAD, well developed HEENT: normal oral exam, no gum erythema or swelling Lungs: Port on the Left chest wall, CTA, no wheezing or crackles Abd: RUQ scar in place with small reducible hernia, ND, NT, soft and normal BS MSK: No LE edema Psych: AAOx3, normal affect Principal Diagnosis Klebsiella bacteremia Discharge Exam NAD, well developed HEENT: normal oral exam, no gum erythema or swelling Lungs: Port on the Left chest wall, CTA, no wheezing or crackles Abd: RUQ scar in place with small reducible hernia, ND, NT, soft and normal BS MSK: No LE edema Psych: AAOx3, normal affect Discharge Data Allergies Allergy/AdvReac Type Severity Reaction Status Date / Time No Known Allergies Allergy Verified 03/07/22 19:46 Consultations 03/08/22 11:08 ED Decision to Admit Stat 03/08/22 12:03 Consult Gastroenterology Routine 03/08/22 12:06 Consult Infectious Diseases Routine 03/10/22 17:27 Consult General Surgery Routine Procedures Performed Operation Date: 03/11/22 07:00 Actual Procedures p Infusaport Removal, Left(Left) - Helder Crowder MD, FACS Hospital Course (1) Sepsis: (2) Bacteremia: (3) Elevated troponin: (4) Cholangiocarcinoma: (5) HTN (hypertension): (6) T2DM (type 2 diabetes mellitus): (7) K[place]ON on CPAP: (8) Port-A-Cath in place: Plan This is a 71-year-old male who has a significant past medical history of metastatic cholangiocarcinoma, T2DM, HTN, HLD, K[place]ON on CPAP, GERD, 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 Patient presented to ER on 03/07/2022 secondary to fever that started the same day. He underwent full work-up including blood cultures. Blood cultures were even drawn from his port. He underwent CT abdomen pelvis which showed satisfactory positioning of the CBD stent. 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 Also noted was upper abdominal omental and peritoneal nodules suggestive of metastasis.his blood cultures returned positive for Enterobacter and Klebsiella oxytoca. He was referred back to the ER. Patient presented today with known positive blood cultures. He has been signs are stable and his WBC count was WNL. He did have a mild lactic acidosis which resolved after receiving IV fluid. His procalcitonin also increased from 1.72-4.37. He received IV cefepime in ED. Sepsis Bacteremia -Klebsiella and Enterobacter Admit to PCU Patient urinalysis negative. Chest x-ray negative. CT abdomen pelvis shows CBD stent with findings as above. No acute infectious intra-abdominal pathology pt does report recent dental work ~ 1 week ago as well in which he completed antibiotics for with amoxicillin CBD stent placed 02/25 and post op antibiotics completed - Started empiric IV Zosyn - will continue for now pending susceptibilities - TTE ordered -Repeat blood cultures drawn today 03/09/2022 after 24 hours of abx therapy - Consult gastroenterology as a stent possible etiology of bacteremia - no intervention from GI standpoint - Consult infectious disease as well - May eventually need general surgery consultation regarding Port-A-Cath site if this is the source - ID recommended removal - follow repeat cultures 03/09/2022 negative x48 hours - Port removed this morning 03/11/2022 by surgery given risk of infected line per ID - will discharge on 14 days of Ciprofloxacin with follow up with [facility] ID, PCP, and his oncologist who is aware of this hospitalization. Metastatic cholangiocarcinoma Diagnosed in November 2018 Status postcholecystectomy Follows [facility] oncology He received 2 rounds of chemotherapy thus far as well as 1 round of radiation Recently had a CBD stent placed on 02/25 secondary to elevated LFTs This is much improved as AST and ALT are normal and direct bili improved from 0.8-0.3 abdominal pain resolved T2DM Well-controlled, hold metformin NovoLog per protocol HTN Blood pressure normal Resume lisinopril tomorrow with parameters KENTON on CPAP CPAP at bedtime DVT ppx: SQ Lovenox Diet: Carb Controlled PCP: Jv FULL CODE Dispo discharge home 03/11/2022 Felipe Cole MD [facility] Medicine Total Time Total Time Spent Total Time Spent (In Minutes): 25 Total Time Includes: Examination of the Patient, Discharge Planning, Medication Reconciliation and Communication With Other Providers Discharge Plan Discharge Items Patient Disposition: Home - Self-Care Reason For Visit: BACTEREMIA Discharge Diagnosis: Klebsiella bacteremia Activity: Resume your previous activity Non-emergency contact: Primary Care Provider and Oncologist Call non-emergency contact if: you have any medication questions, your symptoms worsen and you have a fever Follow-up/Referrals: Jose Carlos Carias MD [Primary Care Provider] - (Date & Time 03/18/2022 11:00 AM Provider Jose Carlos Carias III, MD Department Family [facility] ) Diet: Carb Consistent or DM2 and Heart Healthy Reetl Attending Provider Instructions: You were admitted for fever and found to have positive blood cultures with Klebsiella bacteria. You were started on the antibiotic, Zosyn, and had a good response. You spoke with ID and they recommended removing your chemo port to ensure that it did not cause an ongoing infection. Your repeat blood cultures were negative and your port was removed. You were stable for discharge and transition to oral antibiotics with Ciprofloxacin to be taken for a total of 14 days. You should follow up with ID and your oncologist, as well as your Primary Care Doctor. SPECIAL CARE INSTRUCTIONS: * Cover incisions and change daily for comfort/drainage. * May use ibuprofen for pain as tolerated. * Expect some swelling and bruising. Call your doctor if: * Temperature above 101 degrees * Pain not relieved by pain medicine ordered * There is increased drainage or redness from any incision * You have any unanswered questions or concerns [phone]. FOLLOW UP VISIT: Please call the office for a follow-up visit in 10-14 days to have sutures removed. OFFICE PHONE NUMBER: Dr. Crowder Office [facility] Structural [employer] Trades Worker Provider Instructions: Change bandage once a day May shower over left chest incision Light activity for [address] Crowder's office [phone] come in in approximately 2 weeks for suture removal Pending Studies at Discharge: Yes Studies:: final blood culture results Stand-Alone Forms: My [email or web address], Smoking Cessation Medications and DC Order Prescriptions: New ciprofloxacin HCl 500 mg Tablet 500 mg PO Q12H Qty: 27 0RF Continued metformin 1,000 mg tablet 1,000 mg PO BID gabapentin 300 mg capsule 300 mg PO AMHS oxycodone 5 mg tablet 5 mg PO Q4H PRN (Reason: Pain) atorvastatin 20 mg Tablet 20 mg PO HS lisinopril 20 mg Tablet 20 mg PO BID cholecalciferol (vitamin D3) [Vitamin D3] 1,000 unit Capsule 1,000 unit PO DAILY multivitamin Tablet 1 tab PO DAILY aspirin 81 mg Tablet,Delayed Release (Dr/Ec) 81 mg PO DAILY Discontinued doxycycline hyclate 100 mg capsule 200 mg PO DAILY PRN (Reason: tick bite) Discharge Orders: Discharge Order (Routine); Ordered 03/11/22 Ordered By: Felipe Cole Admission Data Admit Date/Time: 03/08/22 12:03 Attending Provider: Felipe Cole Admit Provider: Wanda Montanez Primary Care Provider: Jose Carlos Carias Other Providers: [email or web address] ; Wanda Montanez ; Mariia Moya ; Harpreet Benoit ; Antione Garrett ; Alfredo Briceño I. ; Edwin Henry II ; Dinah Werner ; Nikos Gomez ; Helder Barbour ; Helder Crowder Other Interventions: Discharge Summary Assessment (RN) Last Done: 03/11/22 14:40 Supervising Physician Co-Signing Physician Notes Late entry: Patient was seen and examined with / with LAKSHMI Cabezas whose note reflects our findings and plan.
[2022-03-11] MEDS ORDERED: ENOXAPARIN INJ 40 MG/0.4 ML SYR SQ SCH (21:00)
== END 2022-03-11 15:08 | disposition home or self-care (01) | DRG 871 ==
LOC: ED 09:34 → SUATTDRO 12:03 → EDINP 12:03 → 2S 15:48